=== PATIENT | female | born 1940 | race African-American/Black ===

== ENCOUNTER 2017-07-25 08:37 | Inpatient (IN) | payer MEDICARE, OTHER ==
[2017-07-25] MEDS ORDERED: GLUCAGON,HUMAN RECOMB 1 MG INJ IV ONE (08:59)
[2017-07-25] MEDS ORDERED: ONDANSETRON HCL INJ/PF 4 MG/2 ML SDV IV ONE (08:59)
[2017-07-25] MEDS ORDERED: NORMAL SALINE 500 ML IV ONE (08:59)
[2017-07-25 09:14] LABS: ABSOLUTE BASOPHILS # (AUTO) 0.1 10^3/uL (0.0-0.2); ABSOLUTE EOSINOPHILS # (AUTO) 0.3 10^3/uL (0.0-0.6); ABSOLUTE LYMPHOCYTES (AUTO) 4.4 10^3/uL (0.5-4.7); ABSOLUTE MONOCYTES (AUTO) 0.5 10^3/uL (0.1-1.4); ABSOLUTE NEUT (AUTO) 4.7 10^3/uL (1.7-8.2); BASOPHILS % (AUTO) 0.7 % (0-2); EOSINOPHILS % (AUTO) 2.9 % (0-6); HEMATOCRIT 42.9 % (36.0-47.0); HEMOGLOBIN 14.1 g/dL (12.0-15.5); HGB HCT DIFFERENCE -0.6; LYMPHOCYTES % (AUTO) 43.9 % (13-45); MEAN CORPUSCULAR HEMOGLOBIN 29.8 pg (27.0-33.4); MEAN CORPUSCULAR HGB CONC 32.9 g/dL (32.0-36.0); MEAN CORPUSCULAR VOLUME 90 fl (80-97); MONOCYTES % (AUTO) 5.5 % (3-13); RED BLOOD COUNT 4.74 10^6/uL (3.72-5.28); RED CELL DISTRIBUTION WIDTH 14.8 % (11.5-14.0); WHITE BLOOD COUNT 9.9 10^3/uL (4.0-10.5)
[2017-07-25 09:19] LABS: VENOUS BLOOD BASE EXCESS 0.9 mmol/L; VENOUS BLOOD HCO3 26.1 mmol/L (20-32); VENOUS BLOOD PCO2 43.5 mmHg (35-63); VENOUS BLOOD PH 7.4 (7.30-7.42)
[2017-07-25 09:29] LABS: APPEARANCE,URINE SLIGHTLY-CLOUDY; BILIRUBIN,URINE NEGATIVE (NEGATIVE); GLUCOSE, URINE NEGATIVE (NEGATIVE); KETONES,URINE NEGATIVE (NEGATIVE); LEUKOCYTE ESTERASE,URINE NEGATIVE (NEGATIVE); NITRITE,URINE NEGATIVE (NEGATIVE); PROTEIN,URINE 100 mg/dL (NEGATIVE); URINE SPECIFIC GRAVITY 1.014
[2017-07-25 09:40] LABS: ALANINE AMINOTRANSFERASE 66 U/L (9-52); ALBUMIN 4.4 g/dL (3.5-5.0); ALKALINE PHOSPHATASE 88 U/L (38-126); ANION GAP 12 (5-19); ASPARTATE AMINO TRANSFERASE 68 U/L (14-36); BILIRUBIN,DIRECT 0.5 mg/dL (0.0-0.4); BILIRUBIN,TOTAL 0.6 mg/dL (0.2-1.3); BLOOD UREA NITROGEN 19 mg/dL (7-20); CALCIUM 11.2 mg/dL (8.4-10.2); CARBON DIOXIDE 23 mmol/L (22-30); CHLORIDE 106 mmol/L (98-107); CREATINE KINASE 278 U/L (30-135); CREATININE RESULT 1.41 mg/dL (0.52-1.25); GLUCOSE 166 mg/dL (75-110); POTASSIUM 3.9 mmol/L (3.6-5.0); SODIUM 140.9 mmol/L (137-145); TOTAL PROTEIN 7.3 g/dL (6.3-8.2)
[2017-07-25 09:51] LABS: CREATINE KINASE MB 2.35 ng/mL (<4.55)
[2017-07-25 09:53] LABS: TROPONIN I < 0.012 ng/mL
--- NOTE | 2017-07-25 10:16 | RADIOLOGY REPORT (SQ) ---
EXAM DESCRIPTION: CHEST SINGLE VIEW COMPLETED DATE/TIME: 07/25/2017 10:01 am REASON FOR STUDY: weakness COMPARISON: 06/07/2015 EXAM PARAMETERS: NUMBER OF VIEWS: One view. TECHNIQUE: Single frontal radiographic view of the chest acquired. RADIATION DOSE: NA LIMITATIONS: None. FINDINGS: LUNGS AND PLEURA: No opacities, masses or pneumothorax. No pleural effusion. MEDIASTINUM AND HILAR STRUCTURES: No masses. Tortuous aorta. . HEART AND VASCULAR STRUCTURES: Heart is at the upper limits of normal allowing for the portable AP na ture of the film. Normal vasculature. BONES: No acute findings. HARDWARE: None in the chest. OTHER: No other significant finding. IMPRESSION: NO ACUTE RADIOGRAPHIC FINDING IN THE CHEST. TECHNICAL DOCUMENTATION: JOB ID: [id number]
--- NOTE | 2017-07-25 11:45 | ER Document Report ---
ED General - General Chief Complaint: Shortness Of Breath Stated Complaint: SHORTNESS OF BREATH Time Seen by Provider: 07/25/17 08:57 TRAVEL OUTSIDE OF THE [place] IN LAST 30 DAYS: No - HPI Patient complains to provider of: Shortness of breath generalized weakness Notes: Patient states feeling unwell for over a week recently saw her PCP at the beginning of this week and had an increase in her blood pressure medication due to hypertension. Patient otherwise states continues to feel unwell. Denies any recent antibiotics denies any fevers chills nausea vomiting she states shortness of breath however this is been ongoing for greater than a week denies any recent travel denies any cough or sputum production. Patient is resting comfortably upon my evaluation of note patient is significantly bradycardic with heart rates in the upper 30s-40s patient does seem to be symptomatic and she states when she sits up her symptoms are worsened - Related Data Allergies/Adverse Reactions: shellfish derived Allergy (Verified 07/25/17 10:10) Home Medications: Current Home Medications Difluprednate [Durezol] 5 ml OP BID 07/25/17 [History] Esomeprazole Mag Trihydrate [Nexium] 40 mg PO DAILY 07/25/17 [History] Fluticasone/Salmeterol [Advair 250-50 Diskus 28 dose] 1 inh IH Q12H 07/25/17 [ History] Ipratropium [place] [Atrovent 0.06% Nasal [place]] 2 spray NASL TID 07/25/17 [ History] Lactose-Reduced Food [Ensure Liquid] 237 ml PO BID 07/25/17 [History] Loratadine [Allergy Relief] 10 mg PO DAILY 07/25/17 [History] Rosuvastatin Calcium 20 mg PO DAILY 07/25/17 [History] Telmisartan/Hydrochlorothiazid [Micardis HCT 80-25 mg Tablet] 1 tab PO DAILY [History] Past Medical History - Social History Smoking Status: Former Smoker Chew tobacco use (# tins/day): No Frequency of alcohol use: None Drug Abuse: None Family History: Reviewed & Not Pertinent - Past Medical History Cardiac Medical History: Reports: Hx Atrial Fibrillation, Hx Coronary Artery Disease - hifh chol , Hx Hypercholesterolemia, Hx Hypertension Denies: Hx Heart Attack Pulmonary Medical History: Reports: Hx Asthma, Hx Bronchitis, Hx COPD, Hx Pneumonia Neurological Medical History: Denies: Hx Cerebrovascular Accident, Hx Seizures GI Medical History: Reports: Hx Gastroesophageal Reflux Disease, Hx Hiatal Hernia. Denies: Hx Hepatitis, Hx Ulcer Musculoskeltal Medical History: Reports Hx Arthritis Psychiatric Medical History: Reports: Hx Anxiety, Hx Depression - not needed medication Infectious Medical History: Denies: Hx Hepatitis Past Surgical History: Reports: Hx Adenoidectomy, Hx Hysterectomy, Hx Tonsillectomy. Denies: Hx Mastectomy, Hx Open Heart Surgery, Hx Pacemaker - Immunizations Hx Diphtheria, Pertussis, Tetanus Vaccination: Yes Hx Pneumococcal Vaccination: 12/02/13 Review of Systems - Review of Systems Constitutional: Weakness EENT: No symptoms reported Cardiovascular: No symptoms reported Respiratory: No symptoms reported Gastrointestinal: No symptoms reported Genitourinary: No symptoms reported Female Genitourinary: No symptoms reported Musculoskeletal: No symptoms reported Skin: No symptoms reported Hematologic/Lymphatic: No symptoms reported Neurological/Psychological: No symptoms reported -: Yes All other systems reviewed and negative Physical Exam - Vital signs Vitals: Pulse Ox 81 L 07/25/17 08:41 Interpretation: Normal - General General appearance: Appears well, Alert - HEENT Head: Normocephalic, Atraumatic Eyes: Normal Pupils: PERRL - Respiratory Respiratory status: No respiratory distress Chest status: Nontender Breath sounds: Normal Chest palpation: Normal - Cardiovascular Rhythm: Bradycardia Heart sounds: Normal auscultation Murmur: No - Abdominal Inspection: Normal Distension: No distension Bowel sounds: Normal Tenderness: Nontender Organomegaly: No organomegaly - Back Back: Normal, Nontender - Extremities General upper extremity: Normal inspection, Nontender, Normal color, Normal ROM , Normal temperature General lower extremity: Normal inspection, Nontender, Normal color, Normal ROM , Normal temperature, Normal weight bearing. No: She's sign - Neurological Neuro grossly intact: Yes Cognition: Normal Orientation: AAOx4 [place] Coma Scale Eye Opening: Spontaneous Ger Coma Scale Verbal: Oriented Ger Coma Scale Motor: Obeys Commands [place] Coma Scale Total: 15 Speech: Normal Motor strength normal: LUE, RUE, LLE, RLE Sensory: Normal - Psychological Associated symptoms: Normal affect, Normal mood - Skin Skin Temperature: Warm Skin Moisture: Dry Skin Color: Normal Course - Re-evaluation Re-evalutation: 07/25/17 14:30 Laboratory findings shows slight elevation in renal function slight lactic acid this is more likely related to the patient's bradycardia. Patient was given IV fluids IV Zofran and IV glucagon which did improve her heart rate. Review of the patient's medication shows slight increase in her Cardizem from 240-360 recently. More likely this is the reason for the patient's bradycardia as this has resolved patient's symptoms have improved. Feel there is any need at this time to give the patient any calcium is that the patient seems to be otherwise be stable. Discussed with PCP agrees with plan to observe patient and reevaluate patient's blood pressure medications in the morning. - Vital Signs Vital signs: Temp Pulse Resp BP Pulse Ox 18 149/76 H 95 07/25/17 13:21 07/25/17 13:21 07/25/17 13:21 - Laboratory Result Diagrams: 07/25/17 08:51 07/25/17 08:51 Laboratory results interpreted by me: 07/25/17 07/25/17 07/25/17 08:51 08:51 08:51 RDW 14.8 H Creatinine 1.41 H Est GFR ( Amer) 44 L Est GFR (Non-Af Amer) 36 L Glucose 166 H POC Glucose Lactic Acid 2.2 H Calcium 11.2 H Direct Bilirubin 0.5 H AST 68 H ALT 66 H Creatine Kinase 278 H Urine Protein Urine Urobilinogen 07/25/17 07/25/17 08:51 09:49 RDW Creatinine Est GFR ( Amer) Est GFR (Non-Af Amer) Glucose POC Glucose 166 H Lactic Acid Calcium Direct Bilirubin AST ALT Creatine Kinase Urine Protein 100 H Urine Urobilinogen 2.0 H Critical Care Note - Critical Care Note Total time excluding time spent on procedures (mins): 35 Comments: Patient with multiple evaluations for symptomatically bradycardia Discharge - Discharge Clinical Impression: Symptomatic bradycardia, Weakness Condition: Good Disposition: ADMITTED OBSERVATION Admitting Provider: [facility] Admitted: Telemetry
[2017-07-25] MEDS ORDERED: ACETAMINOPHEN 500 MG PO PRN (15:59)
[2017-07-25] MEDS ORDERED: (PENDING PHARMACY ID) (Guaifenesin [Mucinex] 600 MG) PO PRN (15:59)
[2017-07-25] MEDS ORDERED: ALBUTEROL SULFATE HFA (90 MCG/PUFF) 200 PUFF/8.5 GM MDI IH PRN (15:59)
[2017-07-25] MEDS ORDERED: GUAIFENESIN 600 MG TABLET.SA PO PRN (16:20)
[2017-07-25] MEDS ORDERED: (PENDING PHARMACY ID) (Difluprednate [Durezol] 5 ML) OP SCH (18:00)
[2017-07-25] MEDS ORDERED: LACTOSE REDUCED FOOD PO SCH (18:00)
[2017-07-25] MEDS: IPRATROPIUM BROMIDE 0.06% NASAL SPRAY 15 ML NASL SCH (18:03)
--- NOTE | 2017-07-25 19:23 | PDOC H&P ---
History of Present Illness Admission Date/PCP: 07/25/17 12:08 LANDON RADHA Patient complains of: Shortness of breath, Generalized weakness History of Present Illness: HEMANT ANDERSON is a 76 year old female known to my practice presented to the ED with complain of worsening generalized weakness and difficulty with breathing. She denied any associated chest pain, palpitation, nausea, vomiting, or diarrhea. She was recently evaluated in the office as work-in for congestion and treated with nasal steroid but found to have significantly elevated blood pressure necessitating adjustment i her Cardizem XT to 360 mg from 240 mg daily. She reported worsening weakness thereafter. Patient denied taking her old and new prescribed medication together. Her initial evaluation in the ED revealed significant bradycardia and patient reported worsening of her symptoms with change in her position. 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 She was treated with IV fluid, Zofran and Glucagon. She did respond to this therapy but due to persistent bradycardia and weakness she was advised hospitalization for further evaluation and management. Past Medical History Cardiac Medical History: Reports: Atrial Fibrillation, Coronary Artery Disease - hifh chol , Hyperlipidema, Hypertension Denies: Myocardial Infarction Pulmonary Medical History: Reports: Asthma, Bronchitis, Chronic Obstructive Pulmonary Disease (COPD), Pneumonia Neurological Medical History: Denies: Seizures GI Medical History: Reports: Gastroesophageal Reflux Disease, Hiatal Hernia Denies: Hepatitis Musculoskeltal Medical History: Reports: Arthritis Psychiatric Medical History: Reports: Depression - not needed medication Hematology: Denies: Anemia, Sickle Cell Disease Past Surgical History Past Surgical History: Reports: Adenoidectomy, Hysterectomy, Tonsillectomy Denies: Amputation, Mastectomy, Pacemaker Social History Smoking Status: Former Smoker Frequency of Alcohol Use: None Hx Recreational Drug Use: No Drugs: None Hx Prescription Drug Abuse: No - Advance Directive Resuscitation Status: Full Code Family History Family History: Reviewed & Not Pertinent Parental Family History Reviewed: Yes Children Family History Reviewed: Yes Sibling(s) Family History Reviewed.: Yes Medication/Allergy Home Medications: Acetaminophen [Pain Relief] 500 mg PO Q6HP PRN 06/08/15 Albuterol Sulfate [Proair HFA Inhalation Aerosol 8.5 gm MDI] 2 puff IH Q4HP PRN 06/08/15 Aspirin [Aspirin EC] 81 mg PO QHS 06/08/15 Diltiazem HCl [Cartia Xt] 240 mg PO DAILY 06/08/15 Donepezil HCl 10 mg PO DAILY 06/08/15 Fluticasone Propionate 1 spray NS BID 06/08/15 Guaifenesin [Mucinex] 600 mg PO BIDP PRN 06/08/15 Montelukast Sodium 10 mg PO DAILY 06/08/15 Sertraline HCl [Zoloft 50 mg Tablet] 25 mg PO DAILY #30 tablet 06/10/15 Difluprednate [Durezol] 5 ml OP BID 07/25/17 Esomeprazole Mag Trihydrate [Nexium] 40 mg PO DAILY 07/25/17 Fluticasone/Salmeterol [Advair 250-50 Diskus 28 dose] 1 inh IH Q12H 07/25/17 Ipratropium [place] [Atrovent 0.06% Nasal [place]] 2 spray NASL TID 07/25/17 Lactose-Reduced Food [Ensure Liquid] 237 ml PO BID 07/25/17 Loratadine [Allergy Relief] 10 mg PO DAILY 07/25/17 Rosuvastatin Calcium 20 mg PO DAILY 07/25/17 Telmisartan/Hydrochlorothiazid [Micardis HCT 80-25 mg Tablet] 1 tab PO DAILY Allergies/Adverse Reactions: shellfish derived Allergy (Verified 07/25/17 10:10) Review of Systems Constitutional: PRESENT: fatigue, weakness. ABSENT: as per HPI, anorexia, chills, fever(s), headache(s), night sweats, weight gain, weight loss, other Eyes: ABSENT: visual disturbances Ears: ABSENT: hearing changes Nose, Mouth, and Throat: ABSENT: as per HPI, headache(s), mouth pain, sore throat, vertigo, other Cardiovascular: ABSENT: chest pain, dyspnea on exertion, edema, orthropnea, palpitations Respiratory: ABSENT: cough, hemoptysis Gastrointestinal: ABSENT: abdominal pain, constipation, diarrhea, hematemesis, hematochezia, nausea, vomiting Genitourinary: ABSENT: dysuria, hematuria Musculoskeletal: PRESENT: muscle weakness - generalized weakness Integumentary: ABSENT: rash, wounds Neurological: ABSENT: abnormal gait, abnormal speech, confusion, dizziness, focal weakness, syncope Psychiatric: ABSENT: anxiety, depression, homidical ideation, suicidal ideation Endocrine: ABSENT: cold intolerance, heat intolerance, polydipsia, polyuria Hematologic/Lymphatic: ABSENT: easy bleeding, easy bruising, lymphadenopathy Allergic/Immunologic: PRESENT: seasonal rhinorrhea - recent nasal and sinus congestion Physical Exam Vital Signs: Temp Pulse Resp BP Pulse Ox 97.3 F 60 16 149/70 H 100 07/25/17 14:10 07/25/17 14:30 07/25/17 14:10 07/25/17 14:10 07/25/17 14:10 Intake & Output 07/24/17 07/25/17 07/26/17 06:59 06:59 06:59 Weight 76 kg General appearance: PRESENT: no acute distress, cooperative, well-developed, well-nourished Head exam: PRESENT: atraumatic, normocephalic Eye exam: PRESENT: conjunctiva pink, EOMI, PERRLA. ABSENT: scleral icterus Ear exam: PRESENT: normal external ear exam Mouth exam: PRESENT: moist, tongue midline Teeth exam: ABSENT: dental caries, dental tenderness, edentulous, poor dentation , other Throat exam: ABSENT: post pharyngeal erythema, tonsillar erythema, tonsillar exudate, tonsillogmegaly, other Neck exam: PRESENT: full ROM. ABSENT: carotid bruit, JVD, lymphadenopathy, thyromegaly Respiratory exam: PRESENT: clear to auscultation eliezer Cardiovascular exam: PRESENT: bradycardia, RRR, +S1, +S2, systolic murmur Murmur grade: 3 Pulses: PRESENT: normal dorsalis pedis pul, +2 pedal pulses bilateral Vascular exam: PRESENT: normal capillary refill. ABSENT: pallor GI/Abdominal exam: PRESENT: normal bowel sounds, soft. ABSENT: distended, guarding, mass, organolmegaly, rebound, tenderness Rectal exam: PRESENT: deferred Extremities exam: ABSENT: pedal edema Musculoskeletal exam: PRESENT: deformity - related to multiple joints involvement with arthritis, normal inspection Neurological exam: PRESENT: alert, awake, oriented to person, oriented to place , oriented to time, oriented to situation, CN II-XII grossly intact. ABSENT: motor sensory deficit Psychiatric exam: PRESENT: appropriate affect, normal mood. ABSENT: homicidal ideation, suicidal ideation Skin exam: PRESENT: dry, intact, warm. ABSENT: cyanosis, rash Results Laboratory Results: 07/25/17 14:53 Lactic Acid 1.6 Impressions: Chest X-Ray 07/25/17 08:58 IMPRESSION: NO ACUTE RADIOGRAPHIC FINDING IN THE CHEST. Assessment & Plan - Diagnosis (1) Symptomatic bradycardia Is this a current diagnosis for this admission?: Yes Plan: See admitting physician orders. (2) Essential hypertension Is this a current diagnosis for this admission?: Yes Plan: See admitting physician orders. (3) GERD (gastroesophageal reflux disease) Qualifiers: Esophagitis presence: without esophagitis Qualified Code(s): K21.9 - Gastro -esophageal reflux disease without esophagitis Is this a current diagnosis for this admission?: Yes Plan: See admitting physician orders. (4) Aortic stenosis Qualifiers: Cardiac valve disease etiology: etiology unspecified Qualified Code(s): I35.0 - Nonrheumatic aortic (valve) stenosis Is this a current diagnosis for this admission?: Yes Plan: See admitting physician orders. (5) Chronic obstructive lung disease Qualifiers: COPD type: unspecified COPD Qualified Code(s): J44.9 - Chronic obstructive pulmonary disease, unspecified Is this a current diagnosis for this admission?: Yes Plan: See admitting physician orders. (6) Pure hypercholesterolemia Is this a current diagnosis for this admission?: Yes Plan: See admitting physician orders. - Time Time Spent: 50 to 70 Minutes Medications reviewed and adjusted accordingly: Yes Anticipated discharge: Home - Inpatient Certification Based on my medical assessment, after consideration of the patient's comorbidities, presenting symptoms, or acuity I expect that the services needed warrant INPATIENT care.: Yes I certify that my determination is in accordance with my understanding of Medicare's requirements for reasonable and necessary INPATIENT services [42 CFR 412.3e].: Yes Medical Necessity: Need Close Monitoring Due to Risk of Patient Decompensation, Need For IV Fluids, Need For Continuous Telemetry Monitoring, Risk of Complication if Not Cared For in Hospital Post 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
[2017-07-25 21:20] LABS: CREATINE KINASE MB 1.67 ng/mL (<4.55); TROPONIN I 0.014 ng/mL
--- NOTE | 2017-07-25 21:25 | EKG REPORT ---
SEVERITY:- ABNORMAL ECG - A. FIB LEFT AXIS DEVIATION LVH WITH SECONDARY REPOLARIZATION ABNORMALITY : Confirmed by: Johny Tsang 25-Jul-2017 21:23:44
[2017-07-25] MEDS: ASPIRIN 81 MG TABLET, ENT COATED PO SCH (21:42)
[2017-07-25] MEDS: FLUTICASONE/SALMETEROL DISKUS 250-50 MCG/DOSE IH SCH (21:42)
[2017-07-25] MEDS: FLUTICASONE NASAL SPRAY 50 MCG/SPRY 120 SPRAY/16 GM NASL SCH (21:43)
[2017-07-25] MEDS: ATORVASTATIN CALCIUM 40 MG TABLET PO SCH (21:44)
[2017-07-25] MEDS: CEFTRIAXONE 1 GM/D5W RTU 1 GM/50 ML RTUPB IV SCH (22:02)
[2017-07-26 02:33] LABS: ABSOLUTE EOSINOPHILS # (AUTO) 0.2 10^3/uL (0.0-0.6); ABSOLUTE MONOCYTES (AUTO) 0.7 10^3/uL (0.1-1.4); ABSOLUTE NEUT (AUTO) 3.2 10^3/uL (1.7-8.2); BASOPHILS % (AUTO) 0.6 % (0-2); EOSINOPHILS % (AUTO) 2.3 % (0-6); HEMOGLOBIN 12.4 g/dL (12.0-15.5); HGB HCT DIFFERENCE 0.2; LYMPHOCYTES % (AUTO) 49.1 % (13-45); MEAN CORPUSCULAR HGB CONC 33.5 g/dL (32.0-36.0); MEAN CORPUSCULAR VOLUME 90 fl (80-97); MONOCYTES % (AUTO) 8.4 % (3-13); RED BLOOD COUNT 4.13 10^6/uL (3.72-5.28); RED CELL DISTRIBUTION WIDTH 14.3 % (11.5-14.0); SEGMENTED NEUTROPHILS % (AUTO) 39.6 % (42-78); WHITE BLOOD COUNT 8.1 10^3/uL (4.0-10.5)
[2017-07-26 03:03] LABS: CREATINE KINASE MB 1.22 ng/mL (<4.55); TROPONIN I < 0.012 ng/mL
[2017-07-26 03:04] LABS: ALANINE AMINOTRANSFERASE 43 U/L (9-52); ALBUMIN 3.5 g/dL (3.5-5.0); ALKALINE PHOSPHATASE 68 U/L (38-126); ANION GAP 9 (5-19); ASPARTATE AMINO TRANSFERASE 29 U/L (14-36); BILIRUBIN,DIRECT 0.3 mg/dL (0.0-0.4); BILIRUBIN,TOTAL 0.4 mg/dL (0.2-1.3); BLOOD UREA NITROGEN 21 mg/dL (7-20); CALCIUM 10.7 mg/dL (8.4-10.2); CARBON DIOXIDE 24 mmol/L (22-30); CHLORIDE 111 mmol/L (98-107); CREATINE KINASE 171 U/L (30-135); CREATININE RESULT 1.44 mg/dL (0.52-1.25); GLUCOSE 118 mg/dL (75-110); POTASSIUM 3.9 mmol/L (3.6-5.0); SODIUM 143.8 mmol/L (137-145); TOTAL PROTEIN 6.1 g/dL (6.3-8.2)
[2017-07-26 08:51] LABS: CREATINE KINASE MB 1.28 ng/mL (<4.55)
[2017-07-26 08:53] LABS: TROPONIN I < 0.012 ng/mL
[2017-07-26] MEDS ORDERED: MONTELUKAST SODIUM 10 MG TABLET PO SCH ×2 (10:00→22:00)
[2017-07-26] MEDS ORDERED: LORATADINE 10 MG TABLET PO SCH ×2 (10:00→22:00)
[2017-07-26] MEDS ORDERED: (PENDING PHARMACY ID) (Rosuvastatin Calcium [Rosuvastatin Calcium] 20 MG) PO SCH (10:00)
[2017-07-26] MEDS ORDERED: (PENDING PHARMACY ID) (Esomeprazole Mag Trihydrate [Nexium] 40 MG) PO SCH (10:00)
[2017-07-26] MEDS ORDERED: (PENDING PHARMACY ID) (Telmisartan/Hydrochlorothiazid [Micardis Hct 80-25 Mg Tablet] 1 TAB PO SCH (10:00)
[2017-07-26] MEDS ORDERED: [UNRECOGNIZED DRUG - REMARK] PO SCH (10:00)
[2017-07-26] MEDS: FLUTICASONE NASAL SPRAY 50 MCG/SPRY 120 SPRAY/16 GM NASL SCH ×2 (10:23→23:49)
[2017-07-26] MEDS: DONEPEZIL HCL 5 MG TABLET PO SCH (10:23)
[2017-07-26] MEDS: HYDROCHLOROTHIAZIDE 25 MG TABLET PO SCH (10:24)
[2017-07-26] MEDS: FLUTICASONE/SALMETEROL DISKUS 250-50 MCG/DOSE IH SCH ×2 (10:24→23:49)
[2017-07-26] MEDS: LANSOPRAZOLE 30 MG TAB.RAP.DR PO SCH (10:31)
[2017-07-26] MEDS: SERTRALINE HCL 50 MG TABLET PO SCH (10:32)
[2017-07-26] MEDS: LOSARTAN POTASSIUM 50 MG TABLET PO SCH (10:38)
[2017-07-26] MEDS: IPRATROPIUM BROMIDE 0.06% NASAL SPRAY 15 ML NASL SCH ×3 (10:41→18:57)
[2017-07-26] MEDS: ACETAMINOPHEN 325 MG TABLET PO PRN (13:18)
[2017-07-26] MEDS ORDERED: VANCOMYCIN HCL 0 MG in DEXTROSE 5%-WATER 250 ML IV NR (15:00)
[2017-07-26] MEDS ORDERED: NIFEDIPINE 30 MG TAB.ER.24 PO ONE (15:10)
--- NOTE | 2017-07-26 16:02 | PDOC PROGRESS REPORT ---
Subjective Progress Note for:: 07/26/17 Subjective:: Patient reported slight headache. No nausea, vomiting or dizziness. She claimed improvement with administration of Tylenol. No chest pain or difficulty with breathing. No reported fever or chills. Bradycardia is improving but with associated demonstrable elevated blood pressure. Physical Exam Vital Signs: Temp Pulse Resp BP Pulse Ox 97.6 F 92 16 189/97 H 95 07/26/17 15:48 07/26/17 15:48 07/26/17 15:48 07/26/17 15:48 07/26/17 15:48 Intake & Output 07/25/17 07/26/17 07/27/17 06:59 06:59 06:59 Intake Total 500 355 Balance 500 355 Weight 75.8 kg General appearance: PRESENT: no acute distress, cooperative, well-developed, well-nourished Head exam: PRESENT: atraumatic, normocephalic Eye exam: PRESENT: conjunctiva pink, EOMI, PERRLA. ABSENT: scleral icterus Neck exam: PRESENT: full ROM. ABSENT: carotid bruit, JVD, lymphadenopathy, thyromegaly Respiratory exam: PRESENT: clear to auscultation eliezer Cardiovascular exam: PRESENT: RRR, +S1, +S2, systolic murmur. ABSENT: diastolic murmur, rubs Murmur grade: 3 Vascular exam: PRESENT: normal capillary refill. ABSENT: pallor GI/Abdominal exam: PRESENT: normal bowel sounds, soft. ABSENT: distended, guarding, mass, organolmegaly, rebound, tenderness Extremities exam: ABSENT: pedal edema Musculoskeletal exam: PRESENT: normal inspection Neurological exam: PRESENT: alert, awake, oriented to person, oriented to place , oriented to time, oriented to situation, CN II-XII grossly intact. ABSENT: motor sensory deficit Psychiatric exam: PRESENT: appropriate affect, normal mood. ABSENT: homicidal ideation, suicidal ideation Skin exam: PRESENT: dry, intact, warm. ABSENT: cyanosis, rash Results Laboratory Results: 07/26/17 02:23 07/26/17 02:23 07/26/17 07/26/17 02:23 02:23 WBC 8.1 RBC 4.13 Hgb 12.4 Hct 37.0 MCV 90 MCH 30.0 MCHC 33.5 RDW 14.3 H Plt Count 201 Seg Neutrophils % 39.6 L Lymphocytes % 49.1 H Monocytes % 8.4 Eosinophils % 2.3 Basophils % 0.6 Absolute Neutrophils 3.2 Absolute Lymphocytes 4.0 Absolute Monocytes 0.7 Absolute Eosinophils 0.2 Absolute Basophils 0.0 Sodium 143.8 Potassium 3.9 Chloride 111 H Carbon Dioxide 24 Anion Gap 9 BUN 21 H Creatinine 1.44 H Est GFR ( Amer) 43 L Est GFR (Non-Af Amer) 35 L Glucose 118 H Calcium 10.7 H Total Bilirubin 0.4 AST 29 ALT 43 Alkaline Phosphatase 68 Total Protein 6.1 L Albumin 3.5 07/25/17 07/25/17 07/26/17 20:00 20:00 02:23 Creatine Kinase 216 H CK-MB (CK-2) 1.67 1.22 Troponin I 0.014 < 0.012 07/26/17 07/26/17 07/26/17 02:23 08:16 08:16 Creatine Kinase 171 H 142 H CK-MB (CK-2) 1.28 Troponin I < 0.012 Impressions: Chest X-Ray 07/25/17 08:58 IMPRESSION: NO ACUTE RADIOGRAPHIC FINDING IN THE CHEST. Assessment & Plan - Diagnosis (1) Symptomatic bradycardia Is this a current diagnosis for this admission?: Yes (2) Essential hypertension Is this a current diagnosis for this admission?: Yes (3) GERD (gastroesophageal reflux disease) Qualifiers: Esophagitis presence: without esophagitis Qualified Code(s): K21.9 - Gastro -esophageal reflux disease without esophagitis Is this a current diagnosis for this admission?: Yes (4) Aortic stenosis Qualifiers: Cardiac valve disease etiology: etiology unspecified Qualified Code(s): I35.0 - Nonrheumatic aortic (valve) stenosis Is this a current diagnosis for this admission?: Yes (5) Chronic obstructive lung disease Qualifiers: COPD type: unspecified COPD Qualified Code(s): J44.9 - Chronic obstructive pulmonary disease, unspecified Is this a current diagnosis for this admission?: Yes (6) Pure hypercholesterolemia Is this a current diagnosis for this admission?: Yes - Time Time Spent with patient: 25-34 minutes Medications reviewed and adjusted accordingly: Yes Anticipated discharge: Home with Homehealth Within: Other - Inpatient Certification Medical Necessity: Need Close Monitoring Due to Risk of Patient Decompensation, Need For Continuous Telemetry Monitoring, Risk of Complication if Not Cared For in Hospital Post Hospital Care: D/C Visor Installer Documentation - Plan Summary Plan Summary: Start on IV Vancomycin for blood culture growth of gram positive cocci in cluster, probably contamination but in view of her presentation we will choice this path. Repeat blood culture x 2 sets. Continue IV Rocephin coverage with consideration of probable UTI. Start on Procardia XL 60 mg p.o x 1 dose. Continue on all other current medication management. Repeat CBC with Diff and BMP in AM.
[2017-07-26] MEDS ORDERED: CLONIDINE HCL 0.2 MG TABLET PO ONE (17:00)
[2017-07-26] MEDS ORDERED: TEMAZEPAM 7.5 MG CAPSULE PO SCH ×2 (17:30→22:00)
[2017-07-26] MEDS: VANCOMYCIN HCL 750 MG in DEXTROSE 5%-WATER 250 ML IV SCH (18:54)
--- NOTE | 2017-07-26 18:56 | XCELERA REPORT ---
[address] [address] Transthoracic Echocardiogram Report Name: HEMANT ANDERSON Age: 76 yrs Gender: Female : 1940 Patient Status: Inpatient Patient Location: [address] [place] [address] Study Date: 07/26/2017 09:44 AM Height: 65 in Weight: 167 lb BSA: 1.8 m2 Procedure: A complete two-dimensional transthoracic echocardiogram was performed (2D, M-mode, spectral and color flow Doppler). The study was technically difficult with many images being suboptimal in quality. Reason For Study: Bradycardia h/o Cardiac Murmur, Aortic stenosis Ordering Physician: LANDON GARCIA Performed By: Claudia Cardoso Interpretation Summary The study was technically difficult with many images being suboptimal in quality. The left ventricular ejection fraction is normal. There is moderate concentric left ventricular hypertrophy. Doppler measurements suggest pseudonormalized left ventricular relaxation, which is associated with grade II/IV or mild to moderate diastolic dysfunction The left ventricle is grossly normal size. Wall motion cannot be accurately commented on, but no definite regional wall motion abnormalities noted. There is moderate aortic stenosis There is a peak gradient of 40-45, mean 20-25 mm of Hg. There is a trace amount of aortic regurgitation There is no mitral valve stenosis. There is a trace amount of mitral regurgitation There is no pericardial effusion. MMode/2D Measurements & Calculations RVDd: 2.5 cm LVIDd: 3.0 cm FS: 30.1 % Ao root diam: 3.1 cm IVSd: 1.6 cm LVIDs: 2.1 cm EDV(Teich): 35.8 ml LVPWd: 1.6 cm ESV(Teich): 14.7 ml Ao root area: 7.3 cm2 EF(Teich): 59.0 % LA dimension: 2.8 cm LVOT diam: 2.2 cm LVOT area: 4.0 cm2 Doppler Measurements & Calculations MV E max isabell: MV P1/2t max isabell: Ao V2 max: LV V1 max P.6 cm/sec 71.3 cm/sec 328.1 cm/sec 12.4 mmHg MV A max isabell: MV P1/2t: 57.5 msec Ao max PG: LV V1 mean P.0 cm/sec MVA(P1/2t): 3.8 cm2 43.1 mmHg 8.5 mmHg MV E/A: 0.73 MV dec slope: Ao V2 mean: LV V1 max: 363.3 cm/sec2 221.9 cm/sec 175.8 cm/sec Ao mean PG: LV V1 mean: 23.3 mmHg 139.9 cm/sec Ao V2 VTI: 63.3 cmLV V1 VTI: 36.9 cm SANJANA(I,D): 2.3 cm2 SANJANA(V,D): 2.1 cm2 SV(LVOT): 146.2 mlPA V2 max: TR max isabell: 71.9 cm/sec 160.6 cm/sec PA max P.1 mmHg TR max P.3 mmHg Left Ventricle The left ventricle is grossly normal size. There is moderate concentric left ventricular hypertrophy. The left ventricular ejection fraction is normal. Doppler measurements suggest pseudonormalized left ventricular relaxation, which is associated with grade II/IV or mild to moderate diastolic dysfunction. Wall motion cannot be accurately commented on, but no definite regional wall motion abnormalities noted. Right Ventricle The right ventricle is grossly normal size. There is normal right ventricular wall thickness. The right ventricular systolic function is normal. Atria The right atrium is normal. The left atrial size is normal. Interarterial septum not well visualized and not well dopplered. Cannot comment on ASD/PFO presence. Mitral Valve There is mild mitral annular calcification. There is no mitral valve stenosis. There is a trace amount of mitral regurgitation. Aortic Valve The aortic valve is moderately calcified. There is moderate aortic stenosis. There is a peak gradient of 40-45, mean 20-25 mm of Hg. There is a trace amount of aortic regurgitation. Tricuspid Valve The tricuspid valve is not well visualized secondary to technical limitations. There is no tricuspid stenosis. There is a trace or physiologic amount of tricuspid regurgitation. Tricuspid regurgitation jet envelope not well defined to measure RV systolic pressure accurately. Pulmonic Valve The pulmonic valve is not well visualized. Great Vessels The aortic root is not well visualized but is probably normal size. The inferior vena cava was not well visualized. Effusions There is no pericardial effusion. : LANDON GARCIA > Johny Tsang
[2017-07-26] MEDS ORDERED: MELATONIN 5 MG PO SCH (22:00)
[2017-07-26] MEDS: ASPIRIN 81 MG TABLET, ENT COATED PO SCH (22:34)
[2017-07-26] MEDS: CEFTRIAXONE 1 GM/D5W RTU 1 GM/50 ML RTUPB IV SCH (22:37)
[2017-07-26] MEDS: ATORVASTATIN CALCIUM 40 MG TABLET PO SCH (23:49)
[2017-07-27 06:04] LABS: HEMATOCRIT 39.8 % (36.0-47.0); HEMOGLOBIN 13.3 g/dL (12.0-15.5); HGB HCT DIFFERENCE 0.1; MEAN CORPUSCULAR HEMOGLOBIN 29.9 pg (27.0-33.4); MEAN CORPUSCULAR HGB CONC 33.4 g/dL (32.0-36.0); MEAN CORPUSCULAR VOLUME 89 fl (80-97); RED BLOOD COUNT 4.46 10^6/uL (3.72-5.28); RED CELL DISTRIBUTION WIDTH 14.5 % (11.5-14.0); WHITE BLOOD COUNT 11.1 10^3/uL (4.0-10.5)
[2017-07-27 06:08] LABS: ANION GAP 12 (5-19); BLOOD UREA NITROGEN 21 mg/dL (7-20); CALCIUM 10.8 mg/dL (8.4-10.2); CARBON DIOXIDE 23 mmol/L (22-30); CHLORIDE 103 mmol/L (98-107); CREATININE RESULT 1.33 mg/dL (0.52-1.25); GLUCOSE 148 mg/dL (75-110); POTASSIUM 3.7 mmol/L (3.6-5.0); SODIUM 137.9 mmol/L (137-145)
[2017-07-27 06:23] LABS: BAND NEUTROPHILS % (MANUAL) 1 % (3-5); BASOPHILS % (MANUAL) 0 % (0-2); EOSINOPHILS % (MANUAL) 1 % (0-6); LYMPHOCYTES % (MANUAL) 4 % (13-45); TOTAL CELLS COUNTED 100
[2017-07-27 06:24] LABS: ANISOCYTOSIS SLIGHT; TOXIC GRANULATION SLIGHT; TOXIC VACUOLATION PRESENT
[2017-07-27] MEDS: LANSOPRAZOLE 30 MG TAB.RAP.DR PO SCH (09:51)
[2017-07-27] MEDS: SERTRALINE HCL 50 MG TABLET PO SCH (09:51)
[2017-07-27] MEDS: DONEPEZIL HCL 5 MG TABLET PO SCH (09:51)
[2017-07-27] MEDS: FLUTICASONE/SALMETEROL DISKUS 250-50 MCG/DOSE IH SCH (09:52)
[2017-07-27] MEDS: FLUTICASONE NASAL SPRAY 50 MCG/SPRY 120 SPRAY/16 GM NASL SCH (09:52)
[2017-07-27] MEDS: ACETAMINOPHEN 325 MG TABLET PO PRN (09:54)
[2017-07-27] MEDS ORDERED: NIFEDIPINE 30 MG TAB.ER.24 PO SCH (10:00)
[2017-07-27] MEDS: IPRATROPIUM BROMIDE 0.06% NASAL SPRAY 15 ML NASL SCH ×3 (10:00→17:57)
[2017-07-27] MEDS ORDERED: NORMAL SALINE 1000 ML 1,000 ML IV ONE (11:32)
[2017-07-27] MEDS: LOSARTAN POTASSIUM 50 MG TABLET PO SCH (11:54)
[2017-07-27] MEDS: HYDROCHLOROTHIAZIDE 25 MG TABLET PO SCH (11:54)
--- NOTE | 2017-07-27 12:37 | PDOC PROGRESS REPORT ---
Subjective Progress Note for:: 07/27/17 Subjective:: Patient had episode of lower extremities muscle spasm last night that has improved. Her blood pressure was low this morning necessitating, blood pressure medication hold. She denied any chest pain, palpitation, difficulty with breathing, headache, dizziness, nausea, or vomiting. No reported fever or chills. Physical Exam Vital Signs: Temp Pulse Resp BP Pulse Ox 98.5 F 106 H 18 89/41 L 97 07/27/17 07:54 07/27/17 07:54 07/27/17 07:54 07/27/17 07:54 07/27/17 07:54 Intake & Output 07/26/17 07/27/17 07/28/17 06:59 06:59 06:59 Intake Total 480 Balance 480 Physical Exam: General appearance: PRESENT: no acute distress, cooperative, well-developed, well-nourished Head exam: PRESENT: atraumatic, normocephalic Eye exam: PRESENT: conjunctiva pink, EOMI, PERRLA. ABSENT: scleral icterus Neck exam: PRESENT: full ROM. ABSENT: carotid bruit, JVD, lymphadenopathy, thyromegaly Respiratory exam: PRESENT: clear to auscultation eliezer Cardiovascular exam: PRESENT: RRR, +S1, +S2, systolic murmur. ABSENT: diastolic murmur, rubs Murmur grade: 3 Vascular exam: PRESENT: normal capillary refill. ABSENT: pallor GI/Abdominal exam: PRESENT: normal bowel sounds, soft. ABSENT: distended, guarding, mass, organomegaly, rebound, tenderness Extremities exam: ABSENT: pedal edema Musculoskeletal exam: PRESENT: normal inspection Neurological exam: PRESENT: alert, awake, oriented to person, oriented to place , oriented to time, oriented to situation, CN II-XII grossly intact. ABSENT: motor sensory deficit Psychiatric exam: PRESENT: appropriate affect, normal mood. ABSENT: homicidal ideation, suicidal ideation Skin exam: PRESENT: dry, intact, warm. ABSENT: cyanosis, rash Murmur grade: 3 Results Laboratory Results: 07/27/17 05:22 07/27/17 05:22 07/27/17 07/27/17 05:22 05:22 WBC 11.1 H RBC 4.46 Hgb 13.3 Hct 39.8 MCV 89 MCH 29.9 MCHC 33.4 RDW 14.5 H Plt Count 183 Seg Neutrophils % Not Reportable Lymphocytes % Not Reportable Monocytes % Not Reportable Eosinophils % Not Reportable Basophils % Not Reportable Absolute Neutrophils Not Reportable Absolute Lymphocytes Not Reportable Absolute Monocytes Not Reportable Absolute Eosinophils Not Reportable Absolute Basophils Not Reportable Sodium 137.9 Potassium 3.7 Chloride 103 Carbon Dioxide 23 Anion Gap 12 BUN 21 H Creatinine 1.33 H Est GFR ( Amer) 47 L Est GFR (Non-Af Amer) 39 L Glucose 148 H Calcium 10.8 H Impressions: Chest X-Ray 07/25/17 08:58 IMPRESSION: NO ACUTE RADIOGRAPHIC FINDING IN THE CHEST. Assessment & Plan - Diagnosis (1) Symptomatic bradycardia Is this a current diagnosis for this admission?: Yes Plan: Resolved. She has been off Diltiazem usage. See admitting physician orders. (2) Essential hypertension Is this a current diagnosis for this admission?: Yes Plan: She had Procardia XL and Clonidine administered last night for severely elevated blood pressure which might have reflected on her blood pressure this morning. Hold ARB. Consider beta vasu for rate management if necessary. See admitting physician orders. (3) Bacteremia due to Gram-positive bacteria Is this a current diagnosis for this admission?: Yes Plan: Continue IV Rocephin and Vancomycin coverage in view of reported gram positive cocci in cluster pending organism identification and sensitivity. Urine culture is no growth x 2 days. (4) GERD (gastroesophageal reflux disease) Qualifiers: Esophagitis presence: without esophagitis Qualified Code(s): K21.9 - Gastro -esophageal reflux disease without esophagitis Is this a current diagnosis for this admission?: Yes Plan: See admitting physician orders. (5) Aortic stenosis Qualifiers: Cardiac valve disease etiology: etiology unspecified Qualified Code(s): I35.0 - Nonrheumatic aortic (valve) stenosis Is this a current diagnosis for this admission?: Yes Plan: See admitting physician orders. (6) Chronic obstructive lung disease Qualifiers: COPD type: unspecified COPD Qualified Code(s): J44.9 - Chronic obstructive pulmonary disease, unspecified Is this a current diagnosis for this admission?: Yes Plan: See admitting physician orders. (7) Pure hypercholesterolemia Is this a current diagnosis for this admission?: Yes Plan: See admitting physician orders. - Time Time Spent with patient: 25-34 minutes Medications reviewed and adjusted accordingly: Yes Anticipated discharge: Home with Homehealth Within: Other - Inpatient Certification Based on my medical assessment, after consideration of the patient's comorbidities, presenting symptoms, or acuity I expect that the services needed warrant INPATIENT care.: Yes I certify that my determination is in accordance with my understanding of Medicare's requirements for reasonable and necessary INPATIENT services [42 CFR 412.3e].: Yes Medical Necessity: Need Close Monitoring Due to Risk of Patient Decompensation, Need For IV Fluids, Need For Continuous Telemetry Monitoring, Need for IV Antibiotics, Risk of Complication if Not Cared For in Hospital Post Hospital Care: D/C Medical Technologist Blood Bank Documentation - Plan Summary Plan Summary: See attending physician orders.
--- NOTE | 2017-07-27 14:49 | PDOC TRANSFER SUMMARY ---
General Admission Date/PCP: 07/26/17 14:50 LANDON GARCIA Resuscitation Status: Full Code - Transfer Diagnosis (1) Symptomatic bradycardia Is this a current diagnosis for this admission?: Yes (2) Essential hypertension Is this a current diagnosis for this admission?: Yes (3) Bacteremia due to Gram-positive bacteria Is this a current diagnosis for this admission?: Yes (4) GERD (gastroesophageal reflux disease) Is this a current diagnosis for this admission?: Yes (5) Aortic stenosis Is this a current diagnosis for this admission?: Yes (6) Chronic obstructive lung disease Is this a current diagnosis for this admission?: Yes (7) Pure hypercholesterolemia Is this a current diagnosis for this admission?: Yes - Transfer Medications Home Medications: Acetaminophen [Pain Relief] 500 mg PO Q6HP PRN 06/08/15 Albuterol Sulfate [Proair HFA Inhalation Aerosol 8.5 gm MDI] 2 puff IH Q4HP PRN 06/08/15 Aspirin [Aspirin EC] 81 mg PO QHS 06/08/15 Diltiazem HCl [Cartia Xt] 240 mg PO DAILY 06/08/15 Donepezil HCl 10 mg PO DAILY 06/08/15 Fluticasone Propionate 1 spray NS BID 06/08/15 Guaifenesin [Mucinex] 600 mg PO BIDP PRN 06/08/15 Montelukast Sodium 10 mg PO DAILY 06/08/15 Difluprednate [Durezol] 5 ml OP BID 07/25/17 Esomeprazole Mag Trihydrate [Nexium] 40 mg PO DAILY 07/25/17 Fluticasone/Salmeterol [Advair 250-50 Diskus 28 dose] 1 inh IH Q12H 07/25/17 Ipratropium [place] [Atrovent 0.06% Nasal [place]] 2 spray NASL TID 07/25/17 Lactose-Reduced Food [Ensure Liquid] 237 ml PO BID 07/25/17 Loratadine [Allergy Relief] 10 mg PO DAILY 07/25/17 Rosuvastatin Calcium 20 mg PO DAILY 07/25/17 Telmisartan/Hydrochlorothiazid [Micardis HCT 80-25 mg Tablet] 1 tab PO DAILY Transfer Medications: Current Medications Acetaminophen (Tylenol 325 Mg Tablet) 487.5 mg PO Q6HP PRN PRN Reason: PAIN Stop: 08/24/17 16:33 Last Admin: 07/27/17 09:54 Dose: 487.5 mg Albuterol (Proair Hfa Inhalation Aerosol 8.5 Gm Mdi) 2 puff IH Q4HP PRN PRN Reason: FOR WHEEZING Stop: 08/24/17 15:58 Aspirin (Ecotrin 81 Mg Ec Tablet) 81 mg PO QHS KATIE Stop: 08/24/17 21:59 Last Admin: 07/26/17 22:34 Dose: 81 mg Atorvastatin Calcium (Lipitor 40 Mg Tablet) 40 mg PO QHS KATIE Stop: 08/24/17 21:59 Last Admin: 07/26/17 23:49 Dose: Not Given Donepezil HCl (Aricept 5 Mg Tablet) 10 mg PO DAILY KATIE Stop: 08/25/17 09:59 Last Admin: 07/27/17 09:51 Dose: 10 mg Fluticasone Propionate (Flonase Nasal [place] 50 Mcg/[place] 16 Gm) 1 spray NASL Q12 KATIE Stop: 08/24/17 21:59 Last Admin: 07/27/17 09:52 Dose: 1 spray Guaifenesin (Mucinex Sr 600 Mg Tablet.Sa) 600 mg PO Q12HP PRN PRN Reason: CONGESTION Stop: 08/24/17 16:19 Ceftriaxone Sodium/Dextrose (Rocephin Rtu 1 Gm/D5w 50 Ml Premix) 1 gm in 50 mls @ 100 mls/hr IV QHS KATIE Stop: 08/01/17 21:59 Last Admin: 07/26/17 22:37 Dose: 50 ml Vancomycin HCl 750 mg/ (Dextrose) 250 mls @ 166.667 mls/hr IV QPM KATEI Stop: 08/02/17 17:59 Last Admin: 07/26/17 18:54 Dose: 750 mg Ipratropium [place] (Atrovent 0.06% Nasal [place]) 2 spray NASL TID KATIE Stop: 08/24/17 17:59 Last Admin: 07/26/17 18:57 Dose: Not Given Lansoprazole (Prevacid 30 Mg Odt Tablet) 30 mg PO DAILY KATIE Stop: 08/25/17 09:59 Last Admin: 07/27/17 09:51 Dose: 30 mg Loratadine (Claritin 10 Mg Tablet) 10 mg PO QHS KATIE Stop: 08/25/17 21:59 Last Admin: 07/26/17 22:35 Dose: 10 mg Montelukast Sodium (Singulair 10 Mg Tablet) 10 mg PO QHS KATIE Stop: 08/25/17 21:59 Last Admin: 07/26/17 22:35 Dose: 10 mg Nifedipine (Procardia Xl 30 Mg Tablet) 60 mg PO DAILY KATIE Stop: 08/26/17 09:59 Last Admin: 07/27/17 11:54 Dose: Not Given Patient Own Medication (Difluprednate [Durezol]) 5 ml OP .BID KATIE Stop: 08/24/17 17:59 Patient Own Medication (Lactose-Reduced Food [Ensure Liquid]) 237 ml PO .BID KATIE Stop: 08/24/17 17:59 Patient Own Medication (Melatonin) 5 mg PO QHS KATIE Stop: 08/25/17 21:59 Fluticasone/Salmeterol (Advair 250-50 Diskus 14 Dose/Diskus) 1 inh IH Q12 KATIE Stop: 08/24/17 21:59 Last Admin: 07/27/17 09:52 Dose: 1 inh Sertraline HCl (Zoloft 50 Mg Tablet) 25 mg PO DAILY KATIE Stop: 08/25/17 09:59 Last Admin: 07/27/17 09:51 Dose: 25 mg Temazepam (Restoril 7.5 Mg Capsule) 7.5 mg PO QHS KATIE Stop: 08/02/17 21:59 Last Admin: 07/26/17 22:34 Dose: 7.5 mg - Allergies Allergies/Adverse Reactions: shellfish derived Allergy (Verified 07/25/17 10:10) - Diet/Activity Discharge Diet: Cardiac Hospital Course Hospital Course: Patient did respond to medical management with resolution of her bradycardia. There was associated blood pressure elevation with need for Clonidine administration. She was started on Nifedipine XL 60 mg po daily with intent to treat her tachycardia with Coreg if it persist. The later did improve with IV fluid administration. Her blood culture did grew gram positive cocci in clutters from one bottle. In view of presenting symptoms including generalized weakness, bradycardia and abnormal urinalysis, she was started IV Vancomycin in addition ti Rocephin for the possible urinary tract infection. She has been afebrile without any genitourinary symptoms. Her echocardiogram, cardiac enzymes and EKG did not suggest any significant acute cardiac cause for her presenting symptoms. Patient and family did request for transfer to [facility] for further evaluation and management. I spoke with covering doctor for Dr Tovar, [facility], and she has been accepted. Physical Exam Vital Signs: Temp Pulse Resp BP Pulse Ox 97.9 F 99 18 108/58 L 95 07/27/17 11:48 07/27/17 11:48 07/27/17 11:48 07/27/17 11:48 07/27/17 11:48 Intake & Output 07/26/17 07/27/17 07/28/17 06:59 06:59 06:59 Intake Total 480 Balance 480 General appearance: PRESENT: no acute distress, cooperative Head exam: PRESENT: atraumatic, normocephalic Eye exam: PRESENT: conjunctiva pink, EOMI, PERRLA. ABSENT: scleral icterus Ear exam: PRESENT: normal external ear exam Mouth exam: PRESENT: moist, tongue midline Throat exam: ABSENT: post pharyngeal erythema, tonsillar erythema, tonsillar exudate, tonsillogmegaly, other Neck exam: ABSENT: carotid bruit, JVD, lymphadenopathy, thyromegaly Respiratory exam: PRESENT: clear to auscultation eliezer. ABSENT: rales, rhonchi, wheezes Cardiovascular exam: PRESENT: RRR, +S1, +S2, systolic murmur. ABSENT: diastolic murmur, rubs Vascular exam: PRESENT: normal capillary refill. ABSENT: pallor GI/Abdominal exam: PRESENT: normal bowel sounds, soft. ABSENT: distended, guarding, mass, organolmegaly, rebound, tenderness Extremities exam: PRESENT: full ROM. ABSENT: calf tenderness, clubbing, pedal edema Neurological exam: PRESENT: alert, awake, oriented to person, oriented to place , oriented to time, oriented to situation, CN II-XII grossly intact. ABSENT: motor sensory deficit Psychiatric exam: PRESENT: appropriate affect, normal mood. ABSENT: homicidal ideation, suicidal ideation Skin exam: PRESENT: dry, intact, warm. ABSENT: cyanosis, rash Results Laboratory Results: 07/27/17 05:22 07/27/17 05:22 07/27/17 07/27/17 05:22 05:22 WBC 11.1 H RBC 4.46 Hgb 13.3 Hct 39.8 MCV 89 MCH 29.9 MCHC 33.4 RDW 14.5 H Plt Count 183 Seg Neutrophils % Not Reportable Lymphocytes % Not Reportable Monocytes % Not Reportable Eosinophils % Not Reportable Basophils % Not Reportable Absolute Neutrophils Not Reportable Absolute Lymphocytes Not Reportable Absolute Monocytes Not Reportable Absolute Eosinophils Not Reportable Absolute Basophils Not Reportable Sodium 137.9 Potassium 3.7 Chloride 103 Carbon Dioxide 23 Anion Gap 12 BUN 21 H Creatinine 1.33 H Est GFR ( Amer) 47 L Est GFR (Non-Af Amer) 39 L Glucose 148 H Calcium 10.8 H Impressions: Chest X-Ray 07/25/17 08:58 IMPRESSION: NO ACUTE RADIOGRAPHIC FINDING IN THE CHEST. Plan Discharge Plan: Transfer to Dr Phillips service at [facility]. Patient has been accepted and awaiting bed allocation. Time Spent: Greater than 30 Minutes - In care coordination, transfer request discussion with patient and daughter.
[2017-07-27] MEDS: VANCOMYCIN HCL 750 MG in DEXTROSE 5%-WATER 250 ML IV SCH (17:55)
[2017-07-27 20:19] VITALS: BP 116/78
== END 2017-07-27 20:10 | disposition short-term general hospital (02) | DRG 309 ==
LOC: ER 08:37 → UNDOADMOB 12:08 → EH 12:08 → 3S 14:05 → EH 19:23 → OBSVTOIN 07-26 14:50
PROVIDERS: ADMIT Internal Medicine Geriatric Medicine; ATTEND Internal Medicine Geriatric Medicine
DX: R00.1 Bradycardia, unspecified (principal); N39.0 Urinary tract infection, site not specified; R78.81 Bacteremia; I48.91 Unspecified atrial fibrillation; I25.10 Atherosclerotic heart disease of native coronary artery without angina pectoris; E78.5 Hyperlipidemia, unspecified; I10 Essential (primary) hypertension; E78.00 Pure hypercholesterolemia, unspecified; J45.909 Unspecified asthma, uncomplicated; J44.9 Chronic obstructive pulmonary disease, unspecified; K21.9 Gastro-esophageal reflux disease without esophagitis; M19.90 Unspecified osteoarthritis, unspecified site; Z90.49 Acquired absence of other specified parts of digestive tract; Z90.710 Acquired absence of both cervix and uterus; Z87.891 Personal history of nicotine dependence; Z79.82 Long term (current) use of aspirin; I35.0 Nonrheumatic aortic (valve) stenosis; Z91.013 Allergy to seafood
CPT/HCPCS: 36415; 51701; 71010; 80048; 80053; 81001; 82550; 82553; 82803; 82962; 83605; 84484; 85025; 85610; 87040; 87077; 87086; 87186; 93005; 93010; 93306; 96374; 99291; G0378; J0696; J1610; J2405; J3370; J3490; J7060

== ENCOUNTER → 2017-09-30 | Outpatient (CLI) | payer MEDICARE, OTHER | LOC: OD 12:25 | PROVIDERS: ATTEND Internal Medicine Geriatric Medicine | DX: E55.9 Vitamin D deficiency, unspecified (principal) | CPT/HCPCS: 82306 ==

== ENCOUNTER 2017-12-10 03:16 | Emergency (ER) | payer MEDICARE, OTHER ==
[2017-12-10] MEDS ORDERED: ASPIRIN 81 MG TABLET, CHEWABLE PO ONE (03:23)
[2017-12-10] MEDS ORDERED: OXYCODONE-ACETAMINOPHEN 5-325 MG TABLET PO ONE (03:51)
[2017-12-10] MEDS ORDERED: ONDANSETRON 4 MG TAB.RAPDIS PO ONE (03:51)
--- NOTE | 2017-12-10 03:52 | ER Document Report ---
ED Neck/Back Problem - General Mode of Arrival: Wheelchair Information source: Patient TRAVEL OUTSIDE OF THE [place] IN LAST 30 DAYS: No - HPI Patient complains to provider of: Neck, Lower back Onset: Other - 2 weeks ago Associated symptoms: Other - see notes above <MEGAN RODRIGUEZ - Last Filed: 12/10/17 04:20> <JERMAINESERGIOJENNIFER MCKENZIE MONICA - Last Filed: 12/10/17 07:56> - General Chief Complaint: Neck Pain >24hrs old Stated Complaint: NECK/SHOULDER PAIN Time Seen by Provider: 12/10/17 03:20 Notes: 76 year old female presents to the ED complaining of neck and bilateral lower back pain (left worse than right) that started 2 weeks ago. Patient was seen in [place], had a CT performed, and was discharged with 600 mg Ibuprofen and Flexeril. Patient states that the medication hasn't been working and her pain is getting worse. Patient additionally has a sharp pain starting in her left arm that radiates up to her shoulder and to her left breast. Patient has been having difficulty getting out of bed secondary to pain and has to move her entire upper body to compensate for her neck pain. Around Whitney time the patient developed a severe cough and had associated pain to her neck from the constant coughing. Patient has not followed up with her PCP. PCP: Dr. Galvan (MEGAN RODRIGUEZ) - Related Data Allergies/Adverse Reactions: shellfish derived Allergy (Verified 07/25/17 10:10) Past Medical History - Social History Family History: Reviewed & Not Pertinent - Past Medical History Cardiac Medical History: Reports: Hx Atrial Fibrillation, Hx Coronary Artery Disease - hifh chol , Hx Hypercholesterolemia, Hx Hypertension Denies: Hx Heart Attack Pulmonary Medical History: Reports: Hx Asthma, Hx Bronchitis, Hx COPD, Hx Pneumonia Neurological Medical History: Denies: Hx Cerebrovascular Accident, Hx Seizures GI Medical History: Reports: Hx Gastroesophageal Reflux Disease, Hx Hiatal Hernia. Denies: Hx Hepatitis, Hx Ulcer Musculoskeltal Medical History: Reports Hx Arthritis Psychiatric Medical History: Reports: Hx Anxiety, Hx Depression - not needed medication Infectious Medical History: Denies: Hx Hepatitis Past Surgical History: Reports: Hx Adenoidectomy, Hx Hysterectomy, Hx Tonsillectomy. Denies: Hx Mastectomy, Hx Open Heart Surgery, Hx Pacemaker - Immunizations Hx Diphtheria, Pertussis, Tetanus Vaccination: Yes Hx Pneumococcal Vaccination: 12/02/13 <MEGAN RODRIGUEZ - Last Filed: 12/10/17 04:20> - Social History Smoking Status: Unknown if Ever Smoked <JENNIFER SMILEY - Last Filed: 12/10/17 07:56> Review of Systems - Review of Systems -: Yes All other systems reviewed and negative <JENNIFER SMILEY - Last Filed: 12/10/17 07:56> Physical Exam - Vital signs Interpretation: Normal - General General appearance: Appears well, Alert - HEENT Head: Normocephalic, Atraumatic Eyes: Normal Pupils: PERRL Neck: Other - Paraspinal tenderness to palpation C5-C7 - Respiratory Respiratory status: No respiratory distress Chest status: Tender - Left chest wall tenderness to palpation, Pain on movement Breath sounds: Normal Chest palpation: Normal - Cardiovascular Rhythm: Regular Heart sounds: Normal auscultation Murmur: No - Abdominal Inspection: Normal Distension: No distension Bowel sounds: Normal Tenderness: Nontender Organomegaly: No organomegaly - Back Back: Normal, Tender - Tenderness to palpation over bilateral trapezius. Tenderness to palpation medial scapula bilaterally left greater than right. - Extremities General upper extremity: Normal inspection, Nontender, Normal color, Normal ROM , Normal temperature General lower extremity: Normal inspection, Nontender, Normal color, Normal ROM , Normal temperature, Normal weight bearing. No: She's sign - Neurological Neuro grossly intact: Yes Cognition: Normal Orientation: AAOx4 [place] Coma Scale Eye Opening: Spontaneous Ger Coma Scale Verbal: Oriented Ger Coma Scale Motor: Obeys Commands Ger Coma Scale Total: 15 Speech: Normal Motor strength normal: LUE, RUE, LLE, RLE Sensory: Normal - Psychological Associated symptoms: Normal affect, Normal mood - Skin Skin Temperature: Warm Skin Moisture: Dry Skin Color: Normal <JENNIFER SMILEY - Last Filed: 12/10/17 07:56> - Vital signs Vitals: Pulse Ox 96 12/10/17 03:23 Course <MEGAN RODRIGUEZ - Last Filed: 12/10/17 04:20> - Laboratory Result Diagrams: 12/10/17 04:15 12/10/17 05:05 - Diagnostic Test Radiology reviewed: Reports reviewed - EKG Interpretation by Ca EKG shows normal: Sinus rhythm Rate: Normal Rhythm: NSR <JENNIFER SMILEY - Last Filed: 12/10/17 07:56> - Re-evaluation Re-evalutation: 12/10/17 07:00 Patient is a 77-year-old female who comes in complaining of back and neck pain. Patient was seen at [facility] for similar symptoms. Chest x-ray within normal limits. No acute findings on blood work including negative troponin. Patient was given ibuprofen and Flexeril at [facility] but is still having pain. Patient has had some relief with Percocet here. It does make her somewhat somnolent so patient will be discharged home with a lower dose. Patient will also be given a referral to primary care doctor. Recommend adjuvant therapies such as massage therapy. Patient and daughter are agreeable to this plan. Vitals are stable. Return if any worsening or concerning symptoms. Of note, the patient is neurovascularly intact with full range of motion and strength of her extremities bilaterally, upper and lower. Stable for discharge. (JENNIFER SMILEY) - Vital Signs Vital signs: Temp Pulse Resp BP Pulse Ox 97.9 F 98 15 136/86 H 96 12/10/17 07:15 12/10/17 07:15 12/10/17 07:15 12/10/17 07:15 12/10/17 07:15 - Laboratory Laboratory results interpreted by me: 12/10/17 12/10/17 04:15 05:05 WBC 11.2 H RDW 14.4 H Plt Count 485 H BUN 21 H Est GFR ( Amer) 52 L Est GFR (Non-Af Amer) 43 L Glucose 149 H Calcium 11.2 H AST 13 L Discharge <MEGAN RODRIGUEZ - Last Filed: 12/10/17 04:20> <JENNIFER SMILEY - Last Filed: 12/10/17 07:56> - Discharge Clinical Impression: Muscle spasm Condition: Stable Disposition: HOME, SELF-CARE Instructions: Muscle Strain ([facility]), Myalagia (Muscle Pain) ([facility]) Prescriptions: Lidocaine [Lidoderm 5% (700 mg) Transdermal Patch] 1 patch TP DAILY #30 adh..patch Oxycodone HCl/Acetaminophen [Percocet 2.5-325 Mg Tablet] 1 each PO BIDP PRN #10 tablet PRN Reason: Referrals: KERI WHYTE MD [ACTIVE STAFF] - Follow up in 3-5 days Scribe Attestation: 12/10/17 07:56 I personally performed the services described in the documentation, reviewed and edited the documentation which was dictated to the scribe in my presence, and it accurately records my words and actions. (JENNIFER SMILEY) Scribe Documentation - Scribe Written by Scribe:: Olivia Mccrary, 12/10/2017 0421 acting as scribe for :: Juvenal <MEGAN RODRIGUEZ - Last Filed: 12/10/17 04:20>
[2017-12-10 04:40] LABS: ABSOLUTE BASOPHILS # (AUTO) 0.1 10^3/uL (0.0-0.2); ABSOLUTE EOSINOPHILS # (AUTO) 0.3 10^3/uL (0.0-0.6); ABSOLUTE LYMPHOCYTES (AUTO) 2.6 10^3/uL (0.5-4.7); ABSOLUTE MONOCYTES (AUTO) 0.8 10^3/uL (0.1-1.4); ABSOLUTE NEUT (AUTO) 7.4 10^3/uL (1.7-8.2); BASOPHILS % (AUTO) 1.3 % (0-2); EOSINOPHILS % (AUTO) 2.7 % (0-6); HEMATOCRIT 37.9 % (36.0-47.0); HEMOGLOBIN 12.5 g/dL (12.0-15.5); LYMPHOCYTES % (AUTO) 22.9 % (13-45); MEAN CORPUSCULAR HGB CONC 33.1 g/dL (32.0-36.0); MEAN CORPUSCULAR VOLUME 88 fl (80-97); PLATELET COUNT 485 10^3/uL (150-450); RED BLOOD COUNT 4.31 10^6/uL (3.72-5.28); RED CELL DISTRIBUTION WIDTH 14.4 % (11.5-14.0); SEGMENTED NEUTROPHILS % (AUTO) 66.1 % (42-78); TOTAL CELLS COUNTED % (AUTO) 100 %; WHITE BLOOD COUNT 11.2 10^3/uL (4.0-10.5)
[2017-12-10 04:42] LABS: INTERNATIONAL RATION (INR) 0.94; PROTHROMBIN TIME 13.3 SEC (11.4-15.4)
--- NOTE | 2017-12-10 04:56 | RADIOLOGY REPORT (SQ) ---
EXAM DESCRIPTION: CHEST SINGLE VIEW CLINICAL HISTORY: PAIN COMPARISON: 07/25/2017 FINDINGS: Single frontal view of the chest. Tortuosity of thoracic aorta. Heart is not enlarged. Low lung volumes. Leads overlie the chest. No consolidation, pneumothorax, or pleural effusion. No displaced rib fractures identified. Upper abdominal soft tissues are unremarkable. IMPRESSION: 1. No acute pulmonary process identified.
[2017-12-10 05:38] LABS: ALANINE AMINOTRANSFERASE 16 U/L (9-52); ALKALINE PHOSPHATASE 89 U/L (38-126); ANION GAP 12 (5-19); ASPARTATE AMINO TRANSFERASE 13 U/L (14-36); BILIRUBIN,DIRECT 0.2 mg/dL (0.0-0.4); BILIRUBIN,TOTAL 0.2 mg/dL (0.2-1.3); BLOOD UREA NITROGEN 21 mg/dL (7-20); CALCIUM 11.2 mg/dL (8.4-10.2); CARBON DIOXIDE 25 mmol/L (22-30); CHLORIDE 104 mmol/L (98-107); CREATINE KINASE 67 U/L (30-135); GLUCOSE 149 mg/dL (75-110); POTASSIUM 3.9 mmol/L (3.6-5.0); SODIUM 141.1 mmol/L (137-145); TOTAL PROTEIN 7.1 g/dL (6.3-8.2)
[2017-12-10 06:05] LABS: CREATINE KINASE MB 0.96 ng/mL (<4.55)
[2017-12-10 06:06] LABS: TROPONIN I < 0.012 ng/mL
--- NOTE | 2017-12-10 06:38 | EKG REPORT ---
SEVERITY:- ABNORMAL ECG - SINUS TACHYCARDIA LEFT ANTERIOR FASCICULAR BLOCK LVH WITH SECONDARY REPOLARIZATION ABNORMALITY : Confirmed by: Pete Kline MD 10-Dec-2017 06:37:21
[2017-12-10 07:17] VITALS: BP 136/86
== END 2017-12-10 07:17 | disposition home or self-care (01) ==
LOC: ER 03:16
DX: M62.838 Other muscle spasm (principal); M54.2 Cervicalgia; M54.5 Low back pain
CPT/HCPCS: 93005; 99284; 36415; 82553; 82550; 85025; 85610; 80053; 84484; 71045; 93010; A9270 ×3; S0119

== ENCOUNTER 2018-12-01 13:54 | Emergency (ER) | payer MEDICARE, OTHER ==
--- NOTE | 2018-12-01 15:58 | ER Document Report ---
Addendum entered and electronically signed by GREGG BURR PA 12/02/18 03:57: Course - Re-evaluation Re-evalutation: 12/02/18 03:57 Transport was supposed to be here between 2 and 3, this was delayed. Patient still a symptomatic on reevaluation. Heart rate in the 50s now. Blood pressure is 150s systolic. Patient should be transported around shift change. No current complaints. Denies chest pain. - Vital Signs Vital signs: Temp Pulse Resp BP Pulse Ox 98.1 F 18 131/60 H 99 12/01/18 14:05 12/02/18 02:16 12/02/18 02:16 12/02/18 02:16 - Laboratory Result Diagrams: 12/01/18 17:00 12/01/18 17:00 Laboratory results interpreted by me: 12/01/18 12/01/18 12/01/18 17:00 17:00 17:26 RDW 14.8 H Chloride 109 H Est GFR (Non-Af Amer) 50 L Calcium 11.0 H Creatine Kinase 161 H Ur Leukocyte Esterase TRACE H Addendum entered and electronically signed by GREGG BURR PA 12/01/18 23:01: Course - Re-evaluation Re-evalutation: 12/01/18 23:00 Patient reevaluated at bedside. She is smiling when I entered the room. She states that she feels "great" now. She still has a heart rate of 37 but her systolic blood pressure is now 140. Most likely the reason she improved as she is recovered from the transient hypotension. She still denies chest pain, she is not diaphoretic, she is not confused. She has no additional complaints. Patient has a room assignment but transport is delayed until probably around 2-3 AM. We will continue to monitor. - Vital Signs Vital signs: Temp Pulse Resp BP Pulse Ox 98.1 F 11 L 113/65 100 12/01/18 14:05 12/01/18 22:01 12/01/18 22:01 12/01/18 22:01 - Laboratory Result Diagrams: 12/01/18 17:00 12/01/18 17:00 Laboratory results interpreted by me: 12/01/18 12/01/18 12/01/18 17:00 17:00 17:26 RDW 14.8 H Chloride 109 H Est GFR (Non-Af Amer) 50 L Calcium 11.0 H Creatine Kinase 161 H Ur Leukocyte Esterase TRACE H Addendum entered and electronically signed by GREGG BURR PA 12/01/18 22:23: Course - Re-evaluation Re-evalutation: 12/01/18 22:20 Patient's heart rate in the 30s. Consistently at 37 at this time. I reevaluated patient at bedside. She does not have chest pain, she is not diaphoretic, she is not confused, she states that currently she has no complaints. Her blood pressure shows systolic of 109. I discussed with Dr. Griggs. Because patient is asymptomatic at this time, and because this most likely secondary to the metoprolol from earlier she could be given glucagon, she could be given atropine or epinephrine, however because patient is not asymptomatic it is not felt that she would benefit from this at this time. Patient will be reevaluated very closely, patient is family members at bedside state they will alert us if she has any complaints or changes at all. No additional interventions at this time. - Vital Signs Vital signs: Temp Pulse Resp BP Pulse Ox 98.1 F 11 L 113/65 100 12/01/18 14:05 12/01/18 22:01 12/01/18 22:01 12/01/18 22:01 - Laboratory Result Diagrams: 12/01/18 17:00 12/01/18 17:00 Laboratory results interpreted by me: 12/01/18 12/01/18 12/01/18 17:00 17:00 17:26 RDW 14.8 H Chloride 109 H Est GFR (Non-Af Amer) 50 L Calcium 11.0 H Creatine Kinase 161 H Ur Leukocyte Esterase TRACE H Addendum entered and electronically signed by GREGG BURR PA 12/01/18 21:12: Course - Re-evaluation Re-evalutation: 12/01/18 21:10 Patient had normalization of blood pressure after small IV fluid bolus of 500 ccs. still bradycardic in the 40s, did reach down to 36 on one occasion but no heart rate in the 30s noted recently. Patient became hypotensive when she got up to go to bedside toilet. She also becomes lightheaded when she does this. She is still bradycardic and somewhat hypotensive after receiving the metoprolol dosing earlier. She does not complain of chest pain. She is alert, responsive, oriented, well-appearing at this time. Bed assignment received, pending transport. - Vital Signs Vital signs: Temp Pulse Resp BP Pulse Ox 98.1 F 19 104/65 100 12/01/18 14:05 12/01/18 19:49 12/01/18 19:49 12/01/18 19:49 - Laboratory Result Diagrams: 12/01/18 17:00 12/01/18 17:00 Laboratory results interpreted by me: 12/01/18 12/01/18 12/01/18 17:00 17:00 17:26 RDW 14.8 H Chloride 109 H Est GFR (Non-Af Amer) 50 L Calcium 11.0 H Creatine Kinase 161 H Ur Leukocyte Esterase TRACE H Original Note: ED General - General Chief Complaint: Dizziness Stated Complaint: DIZZINESS Time Seen by Provider: 12/01/18 15:43 Mode of Arrival: Ambulatory Information source: Parent Notes: Patient presents to emergency department with her family for complaints of feeling dizzy. Patient reports she had an episode on [place] irvin and the symptoms went away. This morning she felt it again. She reports she feels like she is dizzy even laying in the bed. She reports that she became very diaphoretic with the dizziness. Family at the bedside reports patient is acting normal. Patient reports she has been eating drinking as normal. Patient denies trauma. Reports she has not fallen and hit her head. Denies chest pain. Denies shortness of breath. Reports history of subdural hematoma approximately 14 years ago. She reports that she had to learn to do everything over again. Denies residual. Reports history of cardiac disease. Reports she was going to get a stent but upon evaluation by a cath and echo they decided it was more due to the thickness of the wall and she did not need to get a stent. her green marketing analyst Dr Wagner is at [place] [facility]. Her primary care provider is at [facility]. TRAVEL OUTSIDE OF THE [place] IN LAST 30 DAYS: No - HPI Onset: This morning - and once on phillip irvin Onset/Duration: Sudden, Persistent Quality of pain: No pain Severity: None Pain Level: Denies Associated symptoms: Nausea Exacerbated by: Denies Relieved by: Denies Similar symptoms previously: No Recently seen / treated by doctor: No - Related Data Allergies/Adverse Reactions: shellfish derived Allergy (Verified 07/25/17 10:10) Past Medical History - General Information source: Patient - Social History Smoking Status: Never Smoker Chew tobacco use (# tins/day): No Frequency of alcohol use: None Drug Abuse: None Family History: Reviewed & Not Pertinent Patient has suicidal ideation: No Patient has homicidal ideation: No - Past Medical History Cardiac Medical History: Reports: Hx Atrial Fibrillation, Hx Coronary Artery Disease - hifh chol , Hx Hypercholesterolemia, Hx Hypertension Denies: Hx Heart Attack Pulmonary Medical History: Reports: Hx Asthma, Hx Bronchitis, Hx COPD, Hx Pneumonia Neurological Medical History: Reports: Other - Subdural hematoma. Denies: Hx Cerebrovascular Accident, Hx Seizures Renal/ Medical History: Denies: Hx Peritoneal Dialysis GI Medical History: Reports: Hx Gastroesophageal Reflux Disease, Hx Hiatal Hernia. Denies: Hx Hepatitis, Hx Ulcer Musculoskeletal Medical History: Reports Hx Arthritis Psychiatric Medical History: Reports: Hx Anxiety, Hx Depression - not needed medication Infectious Medical History: Denies: Hx Hepatitis Past Surgical History: Reports: Hx Adenoidectomy, Hx Hysterectomy, Hx Tonsillectomy. Denies: Hx Mastectomy, Hx Open Heart Surgery, Hx Pacemaker - Immunizations Hx Diphtheria, Pertussis, Tetanus Vaccination: Yes Hx Pneumococcal Vaccination: 12/02/13 Review of Systems - Review of Systems Notes: Review HPI for review of systems., All other systems negative Physical Exam - Vital signs Vitals: Temp Resp BP Pulse Ox 98.1 F 18 200/98 H 97 12/01/18 14:05 12/01/18 14:05 12/01/18 14:05 12/01/18 14:05 - Notes Notes: PHYSICAL EXAMINATION: GENERAL: Well-appearing and in no acute distress HEAD: Atraumatic, normocephalic. EYES: Pupils equal round and reactive to light, extraocular movements intact, sclera anicteric, conjunctiva are normal. ENT: nares patent, oropharynx clear without exudates. Moist mucous membranes. NECK: Normal range of motion, supple without lymphadenopathy LUNGS: CTAB and equal. No wheezes rales or rhonchi. HEART: Regular rate and rhythm without murmurs ABDOMEN: Soft, no tenderness. No guarding, no rebound EXTREMITIES: Normal range of motion, no pitting edema. No cyanosis. NEUROLOGICAL: Cranial nerves grossly intact. Normal sensory/motor exams. PSYCH: Normal mood, normal affect. SKIN: Warm, Dry, normal turgor, no rashes or lesions noted - Cardiovascular Rhythm: Regular Murmur: Yes - Neurological Neuro grossly intact: Yes Cognition: Normal Orientation: AAOx4 [place] Coma Scale Eye Opening: Spontaneous Ger Coma Scale Verbal: Oriented [place] Coma Scale Motor: Obeys Commands [place] Coma Scale Total: 15 Speech: Normal Cranial nerves: Normal Motor strength normal: LUE, RUE, LLE, RLE Additional motor exam normals: Equal furnace cleaner Course - Re-evaluation Re-evalutation: 12/01/18 18:15 Patient and family instructed on results of labs which are unremarkable and CT and chest x-ray which are unremarkable. Patient and family instructed on second set of troponin. Plan of care which will probably include admission for observation. All questions answered. Patient reports she is thirsty. Declines Tylenol. Reports her headache is gone. Blood pressure is 153/79 now after Lopressor. Patient reports her green marketing analyst is Dr. Wagner at [facility] [facility] and primary care provider is at [facility]. Family was instructed on repeat troponin. Plan of care is of troponin does not elevate she will be admitted here. If she has changes will transfer to her green marketing analyst at [facility] [facility]. Family and patient agrees with plan. Patient denies symptoms at this time. 12/01/18 18:56 Blood pressure dropping 108/65 heart rate is 40 repeat EKG ordered patient reports she feels winded. Denies the dizziness. EKG had changed, further T wave inversion noted. Dr. Griggs consulted advised bolus, 500 ml and then recheck BP, arrange for transport to patient's green marketing analyst. Consulted Dr. Duran at [facility]. Updated on patient's past medical history updated on current status. He agrees with transfer and accepts patient to the cardiology floor. Discussed Lovenox which he declines, reports patient takes aspirin every day so not necessary at this time. Discussed transfer with patient. Family and patient agrees to transfer. Report given to Gregg ORDOÑEZ, family and patient introduced to Gregg. Patient denies chest pain reports she still feels a little winded. EMTALA signed, demographics and radiology report faxed/pushed to [facility] - Vital Signs Vital signs: Temp Pulse Resp BP Pulse Ox 98.1 F 19 104/65 100 12/01/18 14:05 12/01/18 19:49 12/01/18 19:49 12/01/18 19:49 - Laboratory Result Diagrams: 12/01/18 17:00 12/01/18 17:00 Laboratory results interpreted by me: 12/01/18 12/01/18 12/01/18 17:00 17:00 17:26 RDW 14.8 H Chloride 109 H Est GFR (Non-Af Amer) 50 L Calcium 11.0 H Creatine Kinase 161 H Ur Leukocyte Esterase TRACE H - Diagnostic Test Radiology reviewed: Image reviewed, Reports reviewed - EXAM DESCRIPTION: CT HEAD WITHOUT COMPLETED DATE/TIME: 12/01/2018 4:39 pm REASON FOR STUDY: DIZZY COMPARISON: None. TECHNIQUE: Axial images acquired through the brain without intravenous contrast. Images reviewed with bone, brain and subdural windows. Additional sagittal and coronal reconstructions were generated. Images stored on PACS. All CT scanners at this facility use dose modulation, iterative reconstruction, and/or weight based dosing when appropriate to reduce radiation dose to as low as reasonably achievable (ALARA). [facility]: Dose Right [facility]: CareDose [facility]: Dose Right [facility]: Teradose 4D [facility]: [employer] [place] [employer] RADIATION DOSE: CT Rad equipment meets quality standard of care and radiation dose reduction techniques were employed. CTDIvol: 53.2 mGy. DLP: 1017 mGy-cm. mGy. LIMITATIONS: None. FINDINGS: VENTRICLES: Normal size and contour. CEREBRUM: No masses. No hemorrhage. No midline shift. No evidence for acute infarction. Normal moran/white matter differentiation. No areas of low density in the white matter. CEREBELLUM: No masses. No hemorrhage. No alteration of density. No evidence for acute infarction. EXTRAAXIAL SPACES: No fluid collections. No masses. ORBITS AND GLOBE: No intra- or extraconal masses. Normal contour of globe without masses. CALVARIUM: No fracture. Previous left craniotomy. PA RANASAL SINUSES: No fluid or mucosal thickening. SOFT TISSUES: No mass or hematoma. OTHER: No other significant finding. IMPRESSION: NORMAL BRAIN CT WITHOUT CONTRAST. PREVIOUS LEFT CRANIOTOMY. EVIDENCE OF ACUTE STROKE: NO. COMMENT: Quality ID # [id number]: Final reports with documentation of one or more dose reduction techniques (e.g., Automated exposure control, adjustment of the mA and/or kV according to patient size, use of iterative reconstruction technique) EXAM DESCRIPTION: CHEST 2 VIEWS COMPLETED DATE/TIME: 12/01/2018 4:24 pm REASON FOR STUDY: cough, dizzy COMPARISON: 12/10/2017. EXAM PARAMETERS: NUMBER OF VIEWS: two views TECHNIQUE: Digital Frontal and Lateral radiographic views of the chest acquired. RADIATION DOSE: NA LIMITATIONS: none FINDINGS: LUNGS AND PLEURA: No opacities, masses or pneumothorax. No pleural effusion. MEDIASTINUM AND HILAR STRUCTURES: No masses or contour abnormalities. HEART AND VASCULAR STRUCTURES: Heart normal size. No evidence for failure. BONES: No acute findings. HARDWARE: None in the chest. Clips in the upper abdomen. OTHER: No other significant finding. IMPRESSION: NO ACUTE RADIOGRAPHIC FINDING IN THE CHEST. - EKG Interpretation by Me EKG shows normal: Sinus rhythm Rate: Normal When compared to previous EKG there are: Changes noted Additional EKG results interpreted by me: 12/01/18 16:51 t wave inversion anterio lateral - Transfer of Care Care transferred to [facility] provider: GREGG ORDOÑEZ Discharge - Discharge Clinical Impression: Dizziness, Bradycardia, Acute electrocardiogram changes Condition: Stable Disposition: [facility] Referrals: LANDON GARCIA MD [Primary Care Provider] - Follow up as needed
--- NOTE | 2018-12-01 16:36 | RADIOLOGY REPORT (SQ) ---
EXAM DESCRIPTION: CHEST 2 VIEWS COMPLETED DATE/TIME: 12/01/2018 4:24 pm REASON FOR STUDY: cough, dizzy COMPARISON: 12/10/2017. EXAM PARAMETERS: NUMBER OF VIEWS: two views TECHNIQUE: Digital Frontal and Lateral radiographic views of the chest acquired. RADIATION DOSE: NA LIMITATIONS: none FINDINGS: LUNGS AND PLEURA: No opacities, masses or pneumothorax. No pleural effusion. MEDIASTINUM AND HILAR STRUCTURES: No masses or contour abnormalities. HEART AND VASCULAR STRUCTURES: Heart normal size. No evidence for failure. BONES: No acute findings. HARDWARE: None in the chest. Clips in the upper abdomen. OTHER: No other significant finding. IMPRESSION: NO ACUTE RADIOGRAPHIC FINDING IN THE CHEST. TECHNICAL DOCUMENTATION: JOB ID: [id number] [employer]- All Rights Reserved Reading location - IP/workstation name: [email or web address]
[2018-12-01] MEDS ORDERED: METOPROLOL TARTRATE 50 MG TABLET PO ONE (16:48)
--- NOTE | 2018-12-01 16:48 | RADIOLOGY REPORT (SQ) ---
EXAM DESCRIPTION: CT HEAD WITHOUT COMPLETED DATE/TIME: 12/01/2018 4:39 pm REASON FOR STUDY: DIZZY COMPARISON: None. TECHNIQUE: Axial images acquired through the brain without intravenous contrast. Images reviewed wi th bone, brain and subdural windows. Additional sagittal and coronal reconstructions were generated. Images stored on PACS. All CT scanners at this facility use dose modulation, iterative reconstruction, and/or weight based d osing when appropriate to reduce radiation dose to as low as reasonably achievable (ALARA). [facility]: Dose Right [facility]: CareDose [facility]: Dose Right [facility]: Teradose 4D [facility]: [employer] RADIATION DOSE: CT Rad equipment meets quality standard of care and radiation dose reduction techniq ues were employed. CTDIvol: 53.2 mGy. DLP: 1017 mGy-cm. mGy. LIMITATIONS: None. FINDINGS: VENTRICLES: Normal size and contour. CEREBRUM: No masses. No hemorrhage. No midline shift. No evidence for acute infarction. Normal gra y/white matter differentiation. No areas of low density in the white matter. CEREBELLUM: No masses. No hemorrhage. No alteration of density. No evidence for acute infarction. EXTRAAXIAL SPACES: No fluid collections. No masses. ORBITS AND GLOBE: No intra- or extraconal masses. Normal contour of globe without masses. CALVARIUM: No fracture. Previous left craniotomy. PARANASAL SINUSES: No fluid or mucosal thickening. SOFT TISSUES: No mass or hematoma. OTHER: No other significant finding. IMPRESSION: NORMAL BRAIN CT WITHOUT CONTRAST. PREVIOUS LEFT CRANIOTOMY. EVIDENCE OF ACUTE STROKE: NO. COMMENT: Quality ID # [id number]: Final reports with documentation of one or more dose reduction techniques (e.g., Automated exposure control, adjustment of the mA and/or kV according to patient size, use of iterative reconstruction technique) TECHNICAL DOCUMENTATION: JOB ID: [id number] [employer]- All Rights Reserved Reading location - IP/workstation name: [email or web address]
[2018-12-01 17:24] LABS: ABSOLUTE BASOPHILS # (AUTO) 0.1 10^3/uL (0.0-0.2); ABSOLUTE EOSINOPHILS # (AUTO) 0.1 10^3/uL (0.0-0.6); ABSOLUTE LYMPHOCYTES (AUTO) 3.8 10^3/uL (0.5-4.7); ABSOLUTE MONOCYTES (AUTO) 0.5 10^3/uL (0.1-1.4); ABSOLUTE NEUT (AUTO) 3.9 10^3/uL (1.7-8.2); BASOPHILS % (AUTO) 0.7 % (0-2); EOSINOPHILS % (AUTO) 1.5 % (0-6); HEMATOCRIT 42.1 % (36.0-47.0); HEMOGLOBIN 14.3 g/dL (12.0-15.5); LYMPHOCYTES % (AUTO) 44.8 % (13-45); MEAN CORPUSCULAR HEMOGLOBIN 30.3 pg (27.0-33.4); MEAN CORPUSCULAR HGB CONC 33.9 g/dL (32.0-36.0); MEAN CORPUSCULAR VOLUME 89 fl (80-97); MONOCYTES % (AUTO) 6.3 % (3-13); PLATELET COUNT 231 10^3/uL (150-450); RED BLOOD COUNT 4.71 10^6/uL (3.72-5.28); RED CELL DISTRIBUTION WIDTH 14.8 % (11.5-14.0); SEGMENTED NEUTROPHILS % (AUTO) 46.7 % (42-78); TOTAL CELLS COUNTED % (AUTO) 100 %; WHITE BLOOD COUNT 8.4 10^3/uL (4.0-10.5)
[2018-12-01 17:39] LABS: ALANINE AMINOTRANSFERASE 19 U/L (9-52); ALBUMIN 4.3 g/dL (3.5-5.0); ALKALINE PHOSPHATASE 107 U/L (38-126); ASPARTATE AMINO TRANSFERASE 24 U/L (14-36); BILIRUBIN,DIRECT 0.3 mg/dL (0.0-0.4); BILIRUBIN,TOTAL 0.4 mg/dL (0.2-1.3); BLOOD UREA NITROGEN 14 mg/dL (7-20); CREATINE KINASE 161 U/L (30-135); GLUCOSE 100 mg/dL (75-110); POTASSIUM 4.2 mmol/L (3.6-5.0); TOTAL PROTEIN 7.2 g/dL (6.3-8.2)
[2018-12-01 17:44] LABS: ANION GAP 5 (5-19); CARBON DIOXIDE 28 mmol/L (22-30); CHLORIDE 109 mmol/L (98-107); SODIUM 142.3 mmol/L (137-145)
[2018-12-01 17:47] LABS: CREATINE KINASE MB 1.61 ng/mL (<4.55)
[2018-12-01 17:51] LABS: TROPONIN I < 0.012 ng/mL
[2018-12-01 17:54] LABS: APPEARANCE,URINE CLEAR; BILIRUBIN,URINE NEGATIVE (NEGATIVE); COLOR,URINE YELLOW; GLUCOSE, URINE NEGATIVE (NEGATIVE); KETONES,URINE NEGATIVE (NEGATIVE); LEUKOCYTE ESTERASE,URINE TRACE (NEGATIVE); NITRITE,URINE NEGATIVE (NEGATIVE); PROTEIN,URINE NEGATIVE (NEGATIVE); URINE SPECIFIC GRAVITY 1.009; UROBILINOGEN,URINE NEGATIVE mg/dL (<2.0)
[2018-12-01] MEDS ORDERED: NORMAL SALINE 1000 ML 500 ML IV ONE (19:03)
--- NOTE | 2018-12-01 23:37 | EKG REPORT ---
SEVERITY:- ABNORMAL ECG - SINUS RHYTHM LEFT ANTERIOR FASCICULAR BLOCK LVH WITH SECONDARY REPOLARIZATION ABNORMALITY : Confirmed by: Ramonita Gonzalez MD 01-Dec-2018 23:36:17
--- NOTE | 2018-12-01 23:37 | EKG REPORT ---
SEVERITY:- ABNORMAL ECG - SINUS BRADYCARDIA SHORT HI INTERVAL, ACCELERATED AV CONDUCTION LEFT AXIS DEVIATION LVH WITH SECONDARY REPOLARIZATION ABNORMALITY ST DEPRESSION AND T INVERSION, CONSIDER ISCHEMIA, DIFFUSE LDS ANTERIOR ST ELEVATION, PROBABLY DUE TO LVH : Confirmed by: Ramonita Gonzalez MD 01-Dec-2018 23:36:22
[2018-12-02 07:06] VITALS: BP 130/82
--- NOTE | 2018-12-02 07:59 | ER Document Report ---
ED Medical Screen (RME) - General Chief Complaint: Dizziness Stated Complaint: DIZZINESS Time Seen by Provider: 12/01/18 15:43 Mode of Arrival: Ambulatory TRAVEL OUTSIDE OF THE [place] IN LAST 30 DAYS: No - Related Data Allergies/Adverse Reactions: shellfish derived Allergy (Verified 07/25/17 10:10) Past Medical History - Social History Chew tobacco use (# tins/day): No Frequency of alcohol use: None Drug Abuse: None - Past Medical History Cardiac Medical History: Reports: Hx Atrial Fibrillation, Hx Coronary Artery D isease - hifh chol , Hx Hypercholesterolemia, Hx Hypertension Denies: Hx Heart Attack Pulmonary Medical History: Reports: Hx Asthma, Hx Bronchitis, Hx COPD, Hx Pneumonia Neurological Medical History: Reports: Other - Subdural hematoma. Denies: Hx C erebrovascular Accident, Hx Seizures Renal/ Medical History: Denies: Hx Peritoneal Dialysis GI Medical History: Reports: Hx Gastroesophageal Reflux Disease, Hx Hiatal Hernia. Denies: Hx Hepatitis, Hx Ulcer Musculoskeltal Medical History: Reports Hx Arthritis Psychiatric Medical History: Reports: Hx Anxiety, Hx Depression - not needed medication Infectious Medical History: Denies: Hx Hepatitis Past Surgical History: Reports: Hx Adenoidectomy, Hx Hysterectomy, Hx Tonsillectomy. Denies: Hx Mastectomy, Hx Open Heart Surgery, Hx Pacemaker - Immunizations Hx Diphtheria, Pertussis, Tetanus Vaccination: Yes Physical Exam - Vital signs Vitals: Temp Resp BP Pulse Ox 98.1 F 18 200/98 H 97 12/01/18 14:05 12/01/18 14:05 12/01/18 14:05 12/01/18 14:05 Course - Re-evaluation Re-evalutation: 12/02/18 07:58 Patient is stable for transfer - Vital Signs Vital signs: Temp Pulse Resp BP Pulse Ox 98.1 F 11 L 130/82 H 100 12/01/18 14:05 12/02/18 07:01 12/02/18 07:01 12/02/18 07:01 - Laboratory Result Diagrams: 12/01/18 17:00 12/01/18 17:00 Laboratory results interpreted by me: 12/01/18 12/01/18 12/01/18 17:00 17:00 17:26 RDW 14.8 H Chloride 109 H Est GFR (Non-Af Amer) 50 L Calcium 11.0 H Creatine Kinase 161 H Ur Leukocyte Esterase TRACE H Doctor's Discharge - Discharge Clinical Impression: Dizziness, Bradycardia, Acute electrocardiogram changes Condition: Stable Disposition: [facility] Referrals: LANDON GARCIA MD [Primary Care Provider] - Follow up as needed
== END 2018-12-02 08:00 | disposition short-term general hospital (02) ==
LOC: ER 13:54
DX: R00.1 Bradycardia, unspecified (principal); I95.9 Hypotension, unspecified; R42 Dizziness and giddiness; R11.0 Nausea; R61 Generalized hyperhidrosis; I10 Essential (primary) hypertension; I25.10 Atherosclerotic heart disease of native coronary artery without angina pectoris; J44.9 Chronic obstructive pulmonary disease, unspecified; Z91.013 Allergy to seafood; Z79.82 Long term (current) use of aspirin
CPT/HCPCS: 93005; 99285; 96360; 36415; 82553; 82550; 85025; 80053; 81001; 84484; 71046; 70450; 93010; A9270; J7030

== ENCOUNTER → 2019-11-26 | Outpatient (CLI) | payer MEDICARE, OTHER ==
--- NOTE | 2019-11-26 13:37 | RADIOLOGY REPORT (SQ) ---
EXAM DESCRIPTION: U/S RETROPERITON (RENAL/AORTA) COMPLETED DATE/TIME: 11/26/2019 1:04 pm REASON FOR STUDY: CKD III (N18.3) N18.3 CHRONIC KIDNEY DISEASE, STAGE 3 (MODERATE) COMPARISON: None. TECHNIQUE: Dynamic and static grayscale images acquired of the kidneys and bladder and recorded on P ACS. Additional selected color Doppler and spectral images recorded. LIMITATIONS: None. FINDINGS: RIGHT KIDNEY: Normal size measuring 8.7 cm. Normal echogenicity. No solid or suspicious ma sses. No hydronephrosis. No calcifications. LEFT KIDNEY: Asymmetrically small measuring 7.4 cm. Normal echogenicity. No solid or suspicious mass es. No hydronephrosis. No calcifications. BLADDER: Decompressed. Bladder jets visualized. OTHER FINDINGS: No other significant finding. IMPRESSION: No hydronephrosis. Mild asymmetrically small left kidney. Otherwise unremarkable renal ultrasound. TECHNICAL DOCUMENTATION: JOB ID: [id number] [employer]- All Rights Reserved Reading location - IP/workstation name: [email or web address]
== END ==
LOC: RAD 12:26
PROVIDERS: ATTEND Internal Medicine Nephrology
DX: N18.3 Chronic kidney disease, stage 3 (moderate) (principal); N27.0 Small kidney, unilateral
CPT/HCPCS: 76770

== ENCOUNTER → 2020-01-08 | Outpatient (CLI) | payer MEDICARE, OTHER ==
[2020-01-11 15:36] LABS: FREE KAPPA LIGHT CHAINS 29.1 mg/L (3.3-19.4); FREE LAMBDA LIGHT CHAINS 16.3 mg/L (5.7-26.3)
[2020-01-11 15:42] LABS: KAPPA LAMBDA RATIO 1.79 (0.26-1.65)
== END ==
LOC: OD 09:46
PROVIDERS: ATTEND Internal Medicine Nephrology
DX: N18.3 Chronic kidney disease, stage 3 (moderate) (principal); E83.52 Hypercalcemia; E21.3 Hyperparathyroidism, unspecified
CPT/HCPCS: 36415; 82164; 82397; 83883; 84165

== ENCOUNTER → 2020-01-12 | Outpatient (CLI) | payer MEDICARE, OTHER ==
--- NOTE | 2020-01-12 17:16 | RADIOLOGY REPORT (SQ) ---
EXAM DESCRIPTION: CHEST PA/LATERAL COMPLETED DATE/TIME: 01/12/2020 5:04 pm REASON FOR STUDY: HYPERCALCEMIA COMPARISON: 12/01/2018 EXAM PARAMETERS: NUMBER OF VIEWS: two views TECHNIQUE: Digital Frontal and Lateral radiographic views of the chest acquired. RADIATION DOSE: NA LIMITATIONS: none FINDINGS: LUNGS AND PLEURA: No opacities, masses or pneumothorax. No pleural effusion. MEDIASTINUM AND HILAR STRUCTURES: No masses or contour abnormalities. HEART AND VASCULAR STRUCTURES: Cardiomegaly. Tortuosity of the thoracic aorta. No evidence for sabina lure. BONES: No acute findings. HARDWARE: Interval placement of left-sided cardiac pacemaker with the tip of the leads in the right atrium and right ventricle. None in the chest. OTHER: No other significant finding. IMPRESSION: 1. Since the prior study dated 12/01/2018, interval placement of left sided cardiac pac emaker. 2. No acute pulmonary consolidation. 3. Cardiomegaly. No evidence for failure. TECHNICAL DOCUMENTATION: JOB ID: [id number] 2010 [employer]- All Rights Reserved Reading location - IP/workstation name: [email or web address]
== END ==
LOC: RAD 16:43
PROVIDERS: ATTEND Internal Medicine Nephrology
DX: E83.52 Hypercalcemia (principal); I51.7 Cardiomegaly
CPT/HCPCS: 71046

== ENCOUNTER → 2020-01-12 | Outpatient (CLI) | payer MEDICARE, OTHER ==
--- NOTE | 2020-01-12 14:02 | RADIOLOGY REPORT (SQ) ---
EXAM DESCRIPTION: NM PARATHYROID IMAGING COMPLETED DATE/TIME: 01/12/2020 1:42 pm REASON FOR STUDY: HYPERCALCEMIA (E83.52), HYPERPARATHYROIDISM (E21.3) E83.52 HYPERCALCEMIA E21.3 H YPERPARATHYROIDISM, UNSPECIFIED COMPARISON: 09/16/2014. RADIONUCLIDE AND DOSE: 20.7 millicuries Tc-99m Sestamibi. The route of agent administration: Intravenous ADDITIONAL DRUGS AND DOSES: None. TECHNIQUE: Early and delayed images of the neck acquired following radionuclide administration. LIMITATIONS: None. FINDINGS: Thyroid: Normal size. Homogeneous activity. Normal washout. No focal lesions. Parathyroid: No retained activity in the thyroid or elsewhere in the neck to indicate a parathyroid a denoma. Other: No other significant findings. IMPRESSION: NORMAL STUDY. NO EVIDENCE OF PARATHYROID ADENOMA. TECHNICAL DOCUMENTATION: JOB ID: [id number] 2010 [employer]- All Rights Reserved Reading location - IP/workstation name: [email or web address]
== END ==
LOC: RAD 09:51
PROVIDERS: ATTEND Internal Medicine Nephrology
DX: E83.52 Hypercalcemia (principal); E21.3 Hyperparathyroidism, unspecified
CPT/HCPCS: 78070; A9500; Q9969

== ENCOUNTER → 2020-02-24 | Outpatient (CLI) | payer MEDICARE, OTHER ==
[2020-02-24 13:11] LABS: ANION GAP 10 (5-19); BLOOD UREA NITROGEN 23 mg/dL (7-20); CALCIUM 11.1 mg/dL (8.4-10.2); CARBON DIOXIDE 24 mmol/L (22-30); CHLORIDE 106 mmol/L (98-107); GLUCOSE 140 mg/dL (75-110); POTASSIUM 4.2 mmol/L (3.6-5.0)
== END ==
LOC: OD 12:31
PROVIDERS: ATTEND Internal Medicine Nephrology
DX: I12.9 Hypertensive chronic kidney disease with stage 1 through stage 4 chronic kidney disease, or unspecified chronic kidney disease (principal); N18.3 Chronic kidney disease, stage 3 (moderate); N25.81 Secondary hyperparathyroidism of renal origin; E83.52 Hypercalcemia
CPT/HCPCS: 36415; 80048; 83970

== ENCOUNTER 2020-08-26 15:26 | Emergency (ER) | payer MEDICARE ==
[2020-08-26] MEDS ORDERED: ONDANSETRON HCL INJ/PF 4 MG/2 ML SDV IV ONE (17:23)
[2020-08-26] MEDS ORDERED: MECLIZINE HCL 25 MG TABLET PO ONE (17:23)
--- NOTE | 2020-08-26 17:31 | ER Document Report ---
ED Dizziness/Weakness - General Chief Complaint: Nausea/Vomiting Stated Complaint: NAUSEA/VOMITING/DIZZINESS Time Seen by Provider: 08/26/20 16:59 Primary Care Provider: KATHY CADET MD [COMMUNITY BASED STAFF] - 08/29/20 LEONIE ROBLES MD [Primary Care Provider] - Follow up as needed Information source: Patient Notes: Patient reports dizziness in which she notes a rotational movement of the room. Patient reports that this causes her to become nauseated and she vomited twice today. Patient reports symptoms started yesterday around 8 AM. Patient reports symptoms are worse with movement and changes in position. Patient denies any fever, cough, shortness of breath or chest pain. Patient denies any headache or pain symptoms at this time. Patient does report some sinus congestion symptoms for several days. TRAVEL OUTSIDE OF THE [place] IN LAST 30 DAYS: No - HPI Patient complains to provider of: Dizziness, Vertigo Onset: Yesterday Onset/Duration: Waxing and waning Quality of pain: No pain Associated symptoms: Dizzy, Nausea, Vertigo, Vomiting. denies: Chest pain, Confused, Headache, Short of breath Exacerbated by: Change in position Baseline gait: Walks w/o assistance - Related Data Allergies/Adverse Reactions: shellfish derived Allergy (Verified 08/26/20 15:44) Past Medical History - General Information source: Patient - Social History Smoking Status: Never Smoker Chew tobacco use (# tins/day): No Frequency of alcohol use: None Drug Abuse: None Occupation: None Lives with: Alone Family History: Reviewed & Not Pertinent Patient has homicidal ideation: No - Past Medical History Cardiac Medical History: Reports: Hx Coronary Artery Disease - hifh chol , Hx Hypercholesterolemia, Hx Hypertension Denies: Hx Heart Attack Pulmonary Medical History: Reports: Hx Asthma, Hx Bronchitis, Hx COPD - told she does not have this, Hx Pneumonia Neurological Medical History: Denies: Hx Cerebrovascular Accident, Hx Seizures Renal/ Medical History: Reports: Hx Kidney Stones, Hx Renal Insufficiency. Denies: Hx Peritoneal Dialysis GI Medical History: Reports: Hx Gastroesophageal Reflux Disease, Hx Hiatal Hernia. Denies: Hx Hepatitis, Hx Ulcer Musculoskeletal Medical History: Reports Hx Arthritis Psychiatric Medical History: Reports: Hx Anxiety, Hx Depression - not needed medication Infectious Medical History: Denies: Hx Hepatitis Past Surgical History: Reports: Hx Adenoidectomy, Hx Hysterectomy, Hx Orthopedic Surgery - rthr, Hx Tonsillectomy - Immunizations Hx Diphtheria, Pertussis, Tetanus Vaccination: Yes Hx Pneumococcal Vaccination: 12/02/13 Review of Systems - Review of Systems Constitutional: No symptoms reported. denies: Fever, Recent illness EENT: Nose congestion, Sinus pressure, Sinus discharge Cardiovascular: Dizziness. denies: Chest pain Respiratory: No symptoms reported. denies: Cough, Short of breath Gastrointestinal: Nausea, Vomiting. denies: Abdominal pain, Diarrhea Genitourinary: No symptoms reported. denies: Dysuria, Flank pain Female Genitourinary: No symptoms reported Musculoskeletal: No symptoms reported. denies: Back pain, Neck pain Skin: No symptoms reported Hematologic/Lymphatic: No symptoms reported Neurological/Psychological: No symptoms reported. denies: Confusion, Weakness, Headaches Physical Exam - Vital signs Vitals: Temp Pulse Resp BP Pulse Ox 97.7 F 64 16 134/63 H 99 08/26/20 15:40 08/26/20 15:40 08/26/20 15:40 08/26/20 15:40 08/26/20 15:40 - Notes Notes: PHYSICAL EXAMINATION: GENERAL: Well-appearing and in no acute distress. HEAD: Atraumatic, normocephalic. EYES: sclera anicteric, conjunctiva are normal. ENT: Clear rhinorrhea. Moist mucous membranes. NECK: No meningismus, normal range of motion, supple without lymphadenopathy LUNGS: CTAB and equal. No wheezes rales or rhonchi. HEART: Regular rate and rhythm without murmurs ABDOMEN: Soft, nontender, normal bowel sounds, no guarding. EXTREMITIES: Normal range of motion, no pitting edema. No cyanosis. BACK: No midline tenderness, no step-off or deformity. NEUROLOGICAL: Cranial nerves grossly intact with the exception of gait instability. Normal speech. PSYCH: Normal mood, normal affect. SKIN: Warm, Dry, normal turgor, no rashes or lesions noted - HEENT Head: Normocephalic Eyes: Normal Extraocular movements intact: Yes - Unidirectional horizontal nystagmus to the right - Neurological Neuro grossly intact: Yes Cognition: Normal Orientation: AAOx4 Wesley Coma Scale Eye Opening: Spontaneous Ger Coma Scale Verbal: Oriented Ger Coma Scale Motor: Obeys Commands Wesley Coma Scale Total: 15 Speech: Normal. No: Dysarthria, Expressive aphasia, Receptive aphasia Cranial nerves: Normal. No: Gaze palsy, Tongue deviation Cerebellar coordination: Finger-nose rhombey, Rapid alt. movements Motor strength normal: LUE, RUE, LLE, RLE Course - Re-evaluation Re-evalutation: 08/26/20 17:31 Attempted hints exam, patient unable complete test, patient resistant with any movement of the head by the provider. Patient can move head on her own without guarding or limitation but has difficulty following instructions for examination 08/26/20 19:58 Patient reports feeling better and denies any dizzy symptoms at this time. Patient denies any chest pain symptoms or dyspnea symptoms. CT scan reviewed, patient does have chronic findings from her previous craniotomy although no acute findings worrisome for stroke. Patient does have mild elevation of creatinine compared to her most recent results on file. Bolus of IV fluids will be administered given her vomiting over the past [address] arellano regarding patient presentation, EKG reviewed as well as the remainder of her diagnostic evaluation. Patient presents with symptoms consistent with peripheral vertigo. Dr. arellano advises treating symptomatically as well as considering treatment for sinus congestion symptoms. - Vital Signs Vital signs: Temp Pulse Resp BP Pulse Ox 97.6 F 75 14 148/71 H 95 08/26/20 21:21 08/26/20 21:21 08/26/20 21:21 08/26/20 21:21 08/26/20 21:21 - Laboratory Result Diagrams: 08/26/20 17:43 08/26/20 17:43 Laboratory results interpreted by me: 08/26/20 08/26/20 08/26/20 17:43 17:43 20:18 RDW 14.2 H Lymph % (Auto) 48.9 H BUN 30 H Creatinine 1.91 H Est GFR ( Amer) 31 L Est GFR (MDRD) Non-Af 25 L Glucose 112 H Calcium 11.6 H Lipase 514.5 H Urine Protein 30 H Urine Glucose (UA) >=500 H Urine Blood SMALL H Ur Leukocyte Esterase LARGE H - Diagnostic Test Radiology reviewed: Reports reviewed - EKG Interpretation by Me EKG shows normal: Sinus rhythm When compared to previous EKG there are: Changes noted, Other - Patient with paced rhythm rate of 65, QTc 479 Discharge - Discharge Clinical Impression: Renal function impairment, Vertigo, Sinus congestion Nausea & vomiting Qualifiers: Vomiting type: unspecified Vomiting Intractability: unspecified Qualified Code(s): R11.2 - Nausea with vomiting, unspecified UTI (urinary tract infection) Qualifiers: Urinary tract infection type: site unspecified Hematuria presence: with hematuria Qualified Code(s): N39.0 - Urinary tract infection, site not specified Condition: Stable Disposition: HOME, SELF-CARE Instructions: Antinausea Medication ([facility]), Intravenous (IV) Fluids ([facility]), Urinary Tract Infection ([facility]), Vertigo ([facility]), Vomiting ([facility]) Additional Instructions: Return immediately for any new or worsening symptoms Followup with your primary care provider, call tomorrow to make a followup appointment Your creatinine was mildly elevated today as compared to your previous, this could be due to either dehydration from your vomiting. Contact your primary doctor to have this test repeated. Prescriptions: Meclizine HCl [Antivert 25 mg Tablet] 25 mg PO ASDIR PRN #20 tablet PRN Reason: Cefdinir 300 mg PO BID #20 capsule Ondansetron [Zofran Odt 4 mg Tablet] 1 tab PO Q6H PRN #15 tab.rapdis PRN Reason: Referrals: LEONIE ROBLES MD [Primary Care Provider] - Follow up as needed KATHY CADET MD [COMMUNITY BASED STAFF] - 08/29/20
--- NOTE | 2020-08-26 17:51 | RADIOLOGY REPORT (SQ) ---
EXAM DESCRIPTION: CHEST SINGLE VIEW IMAGES COMPLETED DATE/TIME: 08/26/2020 5:41 pm REASON FOR STUDY: dizziness, vomiting COMPARISON: 01/12/2020 EXAM PARAMETERS: NUMBER OF VIEWS: One view. TECHNIQUE: Single frontal radiographic view of the chest acquired. RADIATION DOSE: NA LIMITATIONS: None. FINDINGS: LUNGS AND PLEURA: No opacities, masses or pneumothorax. No pleural effusion. MEDIASTINUM AND HILAR STRUCTURES: No masses. Contour normal. HEART AND VASCULAR STRUCTURES: Heart normal in size. Normal vasculature. BONES: No acute findings. HARDWARE: Pacemaker/defibrillator. OTHER: No other significant finding. IMPRESSION: NO ACUTE RADIOGRAPHIC FINDING IN THE CHEST. TECHNICAL DOCUMENTATION: JOB ID: [id number] 2010 [employer]- All Rights Reserved Reading location - IP/workstation name: [email or web address]
[2020-08-26 18:07] LABS: ABSOLUTE EOSINOPHILS # (AUTO) 0.1 10^3/uL (0.0-0.6); ABSOLUTE LYMPHOCYTES (AUTO) 4.1 10^3/uL (0.5-4.7); ABSOLUTE MONOCYTES (AUTO) 0.5 10^3/uL (0.1-1.4); ABSOLUTE NEUT (AUTO) 3.6 10^3/uL (1.7-8.2); BASOPHILS % (AUTO) 0.4 % (0-2); EOSINOPHILS % (AUTO) 1.5 % (0-6); HEMATOCRIT 40.2 % (36.0-47.0); HEMOGLOBIN 13.9 g/dL (12.0-15.5); LYMPHOCYTES % (AUTO) 48.9 % (13-45); MEAN CORPUSCULAR HEMOGLOBIN 31.4 pg (27.0-33.4); MEAN CORPUSCULAR HGB CONC 34.6 g/dL (32.0-36.0); MEAN CORPUSCULAR VOLUME 91 fl (80-97); PLATELET COUNT 278 10^3/uL (150-450); RED BLOOD COUNT 4.43 10^6/uL (3.72-5.28); RED CELL DISTRIBUTION WIDTH 14.2 % (11.5-14.0); SEGMENTED NEUTROPHILS % (AUTO) 43.2 % (42-78); TOTAL CELLS COUNTED % (AUTO) 100 %; WHITE BLOOD COUNT 8.3 10^3/uL (4.0-10.5)
[2020-08-26 18:26] LABS: ALBUMIN 4.5 g/dL (3.5-5.0); ALKALINE PHOSPHATASE 85 U/L (38-126); ANION GAP 11 (5-19); ASPARTATE AMINO TRANSFERASE 23 U/L (14-36); BILIRUBIN,DIRECT 0.3 mg/dL (0.0-0.4); BILIRUBIN,TOTAL 0.5 mg/dL (0.2-1.3); BLOOD UREA NITROGEN 30 mg/dL (7-20); CALCIUM 11.6 mg/dL (8.4-10.2); CARBON DIOXIDE 28 mmol/L (22-30); CHLORIDE 103 mmol/L (98-107); GLUCOSE 112 mg/dL (75-110); POTASSIUM 3.7 mmol/L (3.6-5.0); TOTAL PROTEIN 7.5 g/dL (6.3-8.2)
--- NOTE | 2020-08-26 18:27 | RADIOLOGY REPORT (SQ) ---
EXAM DESCRIPTION: CT HEAD WITHOUT IMAGES COMPLETED DATE/TIME: 08/26/2020 6:16 pm REASON FOR STUDY: dizziness, vomiting, gait abnormal COMPARISON: 12/01/[address] TECHNIQUE: Axial images acquired through the brain without intravenous contrast. Images reviewed wi th bone, brain and subdural windows. Additional sagittal and coronal reconstructions were generated. Images stored on PACS. All CT scanners at this facility use dose modulation, iterative reconstruction, and/or weight based d osing when appropriate to reduce radiation dose to as low as reasonably achievable (ALARA). [facility]: Dose Right [facility]: CareDose [facility]: Dose Right [facility]: Teradose 4D [facility]: [employer] RADIATION DOSE: CT Rad equipment meets quality standard of care and radiation dose reduction techniq ues were employed. CTDIvol: 53.2 mGy. DLP: 937 mGy-cm. mGy. LIMITATIONS: None. FINDINGS: VENTRICLES: Normal size and contour. CEREBRUM: No CT evidence of acute large territory ischemic change, acute intracranial hemorrhage, mas s effect, or midline shift. There minimal bifrontal deep white matter small vessel. CEREBELLUM: No masses. No hemorrhage. No alteration of density. No evidence for acute infarction. EXTRAAXIAL SPACES: 11 mm calcified mass along the right clivus/cerebellopontine angle likely meningio ma. This is unchanged from CT brain 12/01/2018 ORBITS AND GLOBE: No intra- or extraconal masses. Normal contour of globe without masses. CALVARIUM: Left frontoparietal craniotomy. PARANASAL SINUSES: No fluid or mucosal thickening. SOFT TISSUES: No mass or hematoma. OTHER: No other significant finding. IMPRESSION: No acute findings. Old left frontal craniotomy Minimal bifrontal white matter disease, chronic 11 mm right posterior fossa calcified meningioma, unchanged 2018 EVIDENCE OF ACUTE STROKE: NO. COMMENT: Quality ID # [id number]: Final reports with documentation of one or more dose reduction techniques (e.g., Automated exposure control, adjustment of the mA and/or kV according to patient size, use of iterative reconstruction technique) TECHNICAL DOCUMENTATION: JOB ID: [id number] 2010 [employer]- All Rights Reserved Reading location - IP/workstation name: [email or web address]
[2020-08-26] MEDS ORDERED: NORMAL SALINE 1000 ML 1,000 ML IV ONE (19:53)
[2020-08-26 20:38] LABS: APPEARANCE,URINE TURBID; BILIRUBIN,URINE NEGATIVE (NEGATIVE); COLOR,URINE YELLOW; GLUCOSE, URINE >=500 mg/dL (NEGATIVE); KETONES,URINE NEGATIVE (NEGATIVE); LEUKOCYTE ESTERASE,URINE LARGE (NEGATIVE); NITRITE,URINE NEGATIVE (NEGATIVE); PROTEIN,URINE 30 mg/dL (NEGATIVE); UROBILINOGEN,URINE NEGATIVE mg/dL (<2.0)
[2020-08-26] MEDS ORDERED: CEFTRIAXONE 1 GM/D5W RTU 1 GM/50 ML RTUPB IV ONE (20:45)
--- NOTE | 2020-08-26 21:26 | EKG REPORT ---
SEVERITY:- ABNORMAL ECG - SINUS RHYTHM LEFT BUNDLE BRANCH BLOCK LBBB NEW SINCE EKG OF 12/01/18 : Confirmed by: Ramonita Gonzalez MD 26-Aug-2020 21:25:51
[2020-08-26 21:41] VITALS: BP 148/71
== END 2020-08-26 21:42 | disposition home or self-care (01) ==
LOC: ER 15:26
DX: N39.0 Urinary tract infection, site not specified (principal); N28.9 Disorder of kidney and ureter, unspecified; R09.81 Nasal congestion; R11.2 Nausea with vomiting, unspecified; R42 Dizziness and giddiness; E78.00 Pure hypercholesterolemia, unspecified; I10 Essential (primary) hypertension; Z87.442 Personal history of urinary calculi
CPT/HCPCS: 93005; 99285; 96361; 96375; 96365; 36415; 87086; 83690; 85025; 87088; 80053; 81001; 84484; 87186; 71045; 70450; 93010; A9270; J2405; J7030; J0696

== ENCOUNTER → 2020-08-31 | Outpatient (CLI) | payer MEDICARE, OTHER ==
--- NOTE | 2020-08-31 16:08 | RADIOLOGY REPORT (SQ) ---
EXAM DESCRIPTION: BONE SURVEY COMPLETE IMAGES COMPLETED DATE/TIME: 08/31/2020 3:47 pm REASON FOR STUDY: (D47.2)MONOCLONAL GAMMOPATHY;(D72.820)LYMPHOCYTOSIS (SYMPTOMATIC) COMPARISON: None. TECHNIQUE: Images of the axial and proximal appendicular skeleton are obtained, along with lateral s kull and frontal chest films. LIMITATIONS: Jewelry artifact overlying skull. FINDINGS: AP CHEST: No bony findings. Lungs are clear. LATERAL SKULL: No worrisome bone lesions. AP BOTH HUMERI: No worrisome bone lesions. TWO-VIEW LUMBAR SPINE: No worrisome bone lesions. TWO-VIEW THORACIC SPINE: No worrisome bone lesions. AP PELVIS: No worrisome bone lesions. AP BOTH FEMURS: No worrisome bone lesions. OTHER: Defibrillator. Right hip arthroplasty. IMPRESSION: Negative bone survey. Reading location - IP/workstation name: [email or web address]
== END ==
LOC: RAD 15:16
PROVIDERS: ATTEND Internal Medicine
DX: D47.2 Monoclonal gammopathy (principal); D72.820 Lymphocytosis (symptomatic)
CPT/HCPCS: 77075

== ENCOUNTER 2020-09-20 14:07 | Emergency (ER) | payer MEDICARE, OTHER ==
--- NOTE | 2020-09-20 15:16 | ER Document Report ---
ED Medical Screen (RME) - General Chief Complaint: Abnormal Lab Results Stated Complaint: ABNORMAL LABS Time Seen by Provider: 09/20/20 15:04 Primary Care Provider: KATHY ROSADO MD [Primary Care Provider] - Follow up as needed TRAVEL OUTSIDE OF THE [place] IN LAST 30 DAYS: No - HPI Notes: 09/20/20 15:13 79-year-old female with a history of a defibrillator/pacemaker, hypertrophic obstructive cardiomegaly, GERD presents to the emergency room for abnormal labs, her calcium was 11.9, creatinine was 2.2, BUN 29 and patient is also complaining of intermittent substernal chest pain and palpitations that started approximately 40 minutes ago. Denies any radiation of chest pain, denies any shortness of breath. Denies any fevers or chills. Was advised by Dr. Rosado, PCP to come to the emergency room for hypercalcemia. Denies any nausea vomiting diarrhea, abdominal pain. I have greeted and performed a rapid initial assessment of this patient. A comprehensive ED assessment and evaluation of the patient, analysis of test results and completion of the medical decision making process will be conducted by additional ED providers. PHYSICAL EXAMINATION: GENERAL: Chronically ill malnourished and in no acute distress NECK: Normal range of motion CV: s1, s2 regular LUNGS: No respiratory distress - Related Data Allergies/Adverse Reactions: shellfish derived Allergy (Verified 09/20/20 15:01) Past Medical History - Social History Chew tobacco use (# tins/day): No Frequency of alcohol use: None Drug Abuse: None - Past Medical History Cardiac Medical History: Reports: Hx Atrial Fibrillation, Hx Coronary Artery Disease - hifh chol , Hx Hypercholesterolemia, Hx Hypertension Denies: Hx Heart Attack Pulmonary Medical History: Reports: Hx Asthma, Hx Bronchitis, Hx COPD - told she does not have this, Hx Pneumonia Neurological Medical History: Denies: Hx Cerebrovascular Accident, Hx Seizures Renal/ Medical History: Reports: Hx Kidney Stones, Hx Renal Insufficiency. Denies: Hx Peritoneal Dialysis GI Medical History: Reports: Hx Gastroesophageal Reflux Disease, Hx Hiatal Hernia. Denies: Hx Hepatitis, Hx Ulcer Musculoskeltal Medical History: Reports Hx Arthritis Psychiatric Medical History: Reports: Hx Anxiety, Hx Depression - not needed medication Infectious Medical History: Denies: Hx Hepatitis Past Surgical History: Reports: Hx Adenoidectomy, Hx Hysterectomy, Hx Orthopedic Surgery - rthr, Hx Tonsillectomy. Denies: Hx Mastectomy, Hx Open Heart Surgery, Hx Pacemaker - Immunizations Hx Diphtheria, Pertussis, Tetanus Vaccination: Yes Physical Exam - Vital signs Vitals: Temp Pulse Resp BP Pulse Ox 98.0 F 66 16 115/64 98 09/20/20 14:38 09/20/20 14:38 09/20/20 14:38 09/20/20 14:38 09/20/20 14:38 Course - Vital Signs Vital signs: Temp Pulse Resp BP Pulse Ox 98.0 F 66 16 115/64 98 09/20/20 15:01 09/20/20 14:38 09/20/20 14:38 09/20/20 14:38 09/20/20 14:38 Doctor's Discharge - Discharge Referrals: KATHY ROSADO MD [Primary Care Provider] - Follow up as needed
--- NOTE | 2020-09-20 16:18 | RADIOLOGY REPORT (SQ) ---
EXAM DESCRIPTION: CHEST SINGLE VIEW IMAGES COMPLETED DATE/TIME: 09/20/2020 4:04 pm REASON FOR STUDY: chest pain x 1 hour COMPARISON: 08/26/2020. EXAM PARAMETERS: NUMBER OF VIEWS: One view. TECHNIQUE: Single frontal radiographic view of the chest acquired. RADIATION DOSE: NA LIMITATIONS: None. FINDINGS: LUNGS AND PLEURA: No opacities, masses or pneumothorax. No pleural effusion. MEDIASTINUM AND HILAR STRUCTURES: No masses. Contour normal. HEART AND VASCULAR STRUCTURES: Heart normal in size. Normal vasculature. BONES: No acute findings. HARDWARE: Defibrillator. OTHER: No other significant finding. IMPRESSION: NO ACUTE RADIOGRAPHIC FINDING IN THE CHEST. TECHNICAL DOCUMENTATION: JOB ID: [id number] 2010 [employer]- All Rights Reserved Reading location - IP/workstation name: [email or web address]
[2020-09-20 16:19] LABS: HEMATOCRIT 41.8 % (36.0-47.0); HEMOGLOBIN 14.2 g/dL (12.0-15.5); MEAN CORPUSCULAR HEMOGLOBIN 30.4 pg (27.0-33.4); MEAN CORPUSCULAR HGB CONC 33.9 g/dL (32.0-36.0); MEAN CORPUSCULAR VOLUME 90 fl (80-97); PLATELET COUNT 267 10^3/uL (150-450); RED BLOOD COUNT 4.67 10^6/uL (3.72-5.28); RED CELL DISTRIBUTION WIDTH 14.3 % (11.5-14.0); WHITE BLOOD COUNT 7.8 10^3/uL (4.0-10.5)
[2020-09-20 16:41] LABS: ALBUMIN 4.5 g/dL (3.5-5.0); ALKALINE PHOSPHATASE 88 U/L (38-126); ANION GAP 11 (5-19); ASPARTATE AMINO TRANSFERASE 22 U/L (14-36); BILIRUBIN,DIRECT 0.3 mg/dL (0.0-0.4); BILIRUBIN,TOTAL 0.5 mg/dL (0.2-1.3); BLOOD UREA NITROGEN 33 mg/dL (7-20); CALCIUM 11.5 mg/dL (8.4-10.2); CARBON DIOXIDE 26 mmol/L (22-30); CHLORIDE 102 mmol/L (98-107); GLUCOSE 132 mg/dL (75-110); POTASSIUM 3.4 mmol/L (3.6-5.0); TOTAL PROTEIN 7.3 g/dL (6.3-8.2)
[2020-09-20 16:56] LABS: ABSOLUTE LYMPHOCYTES# (MANUAL) 4.1 10^3/uL (0.5-4.7); ABSOLUTE MONOCYTES # (MANUAL) 0.2 10^3/uL (0.1-1.4); ANISOCYTOSIS SLIGHT; BASOPHILS % (MANUAL) 0 % (0-2); EOSINOPHILS % (MANUAL) 5 % (0-6); LYMPHOCYTES % (MANUAL) 53 % (13-45); MONOCYTES % (MANUAL) 3 % (3-13); PLATELET COMMENT ADEQUATE; SEGMENTED NEUTROPHILS % (MAN) 39 % (42-78); TOTAL CELLS COUNTED 100
[2020-09-20 17:21] LABS: APPEARANCE,URINE SLIGHTLY-CLOUDY; BILIRUBIN,URINE NEGATIVE (NEGATIVE); COLOR,URINE YELLOW; GLUCOSE, URINE 50 mg/dL (NEGATIVE); KETONES,URINE NEGATIVE (NEGATIVE); LEUKOCYTE ESTERASE,URINE LARGE (NEGATIVE); NITRITE,URINE NEGATIVE (NEGATIVE); PROTEIN,URINE NEGATIVE (NEGATIVE); URINE SPECIFIC GRAVITY 1.009; UROBILINOGEN,URINE NEGATIVE mg/dL (<2.0)
[2020-09-20] MEDS ORDERED: NORMAL SALINE 1000 ML 1,000 ML IV ONE (17:42)
[2020-09-20] MEDS ORDERED: CEFTRIAXONE 1 GM/D5W RTU 1 GM/50 ML RTUPB IV ONE (17:54)
--- NOTE | 2020-09-20 18:09 | ER Document Report ---
ED General - General Chief Complaint: Abnormal Lab Results Stated Complaint: ABNORMAL LABS Time Seen by Provider: 09/20/20 15:04 Primary Care Provider: KATHY CADET MD [Primary Care Provider] - Follow up as needed Mode of Arrival: Ambulatory Information source: Patient TRAVEL OUTSIDE OF THE [place] IN LAST 30 DAYS: No - HPI Notes: Patient presents with a complaint that she was referred here by her primary care doctor. She states she went to her primary care doctor due to having a recheck for urinary tract infection. She states her doctor did some labs and called her today and told her that her calcium was high and that she should come to the emergency department. Patient states she has not had any significant symptoms. She has no new dizziness. No new abdominal pain. She states is still does burn when she urinates however. She states she has had no confusion or headaches. No vomiting or diarrhea. Patient states that her discomfort is only with urination and she has no discomfort when she is not urinating. It is a burning sensation. Does not radiate. Mild in intensity. - Related Data Allergies/Adverse Reactions: shellfish derived Allergy (Verified 09/20/20 15:01) Past Medical History - General Information source: Patient - Social History Smoking Status: Never Smoker Chew tobacco use (# tins/day): No Frequency of alcohol use: None Drug Abuse: None Family History: Reviewed & Not Pertinent Patient has homicidal ideation: No - Past Medical History Cardiac Medical History: Reports: Hx Atrial Fibrillation, Hx Coronary Artery Disease - hifh chol , Hx Hypercholesterolemia, Hx Hypertension Denies: Hx Heart Attack Pulmonary Medical History: Reports: Hx Asthma, Hx Bronchitis, Hx COPD - told she does not have this, Hx Pneumonia Neurological Medical History: Denies: Hx Cerebrovascular Accident, Hx Seizures Renal/ Medical History: Reports: Hx Kidney Stones, Hx Renal Insufficiency. Denies: Hx Peritoneal Dialysis GI Medical History: Reports: Hx Gastroesophageal Reflux Disease, Hx Hiatal Hernia. Denies: Hx Hepatitis, Hx Ulcer Musculoskeletal Medical History: Reports Hx Arthritis Psychiatric Medical History: Reports: Hx Anxiety, Hx Depression - not needed medication Infectious Medical History: Denies: Hx Hepatitis Past Surgical History: Reports: Hx Adenoidectomy, Hx Cardiac Surgery - pacemaker/defib, Hx Hysterectomy, Hx Orthopedic Surgery - rthr, Hx Tonsillectomy. Denies: Hx Mastectomy, Hx Open Heart Surgery, Hx Pacemaker - Immunizations Hx Diphtheria, Pertussis, Tetanus Vaccination: Yes Hx Pneumococcal Vaccination: 12/02/13 Review of Systems - Review of Systems Constitutional: denies: Chills, Fever Cardiovascular: denies: Chest pain, Palpitations Respiratory: denies: Cough, Short of breath -: Yes All other systems reviewed and negative Physical Exam - Vital signs Vitals: Temp Pulse Resp BP Pulse Ox 98.0 F 66 16 115/64 98 09/20/20 14:38 09/20/20 14:38 09/20/20 14:38 09/20/20 14:38 09/20/20 14:38 Interpretation: Normal - General General appearance: Appears well, Alert - HEENT Head: Normocephalic, Atraumatic Eyes: Normal Pupils: PERRL - Respiratory Respiratory status: No respiratory distress Chest status: Nontender Breath sounds: Normal Chest palpation: Normal - Cardiovascular Rhythm: Regular Heart sounds: Normal auscultation Murmur: No - Abdominal Inspection: Normal Distension: No distension Bowel sounds: Normal Tenderness: Nontender Organomegaly: No organomegaly - Back Back: Normal, Nontender - Extremities General upper extremity: Normal inspection, Nontender, Normal color, Normal ROM, Normal temperature General lower extremity: Normal inspection, Nontender, Normal color, Normal ROM, Normal temperature, Normal weight bearing. No: She's sign - Neurological Neuro grossly intact: Yes Cognition: Normal Orientation: AAOx4 Marion Coma Scale Eye Opening: Spontaneous Ger Coma Scale Verbal: Oriented [place] Coma Scale Motor: Obeys Commands Marion Coma Scale Total: 15 Speech: Normal Motor strength normal: LUE, RUE, LLE, RLE Sensory: Normal - Psychological Associated symptoms: Normal affect, Normal mood - Skin Skin Temperature: Warm Skin Moisture: Dry Skin Color: Normal Course - Re-evaluation Re-evalutation: 09/20/20 18:07 Patient presents secondary to being referred by her primary care physician for a high calcium. Her calcium here is 11.5. It was actually 1.63 weeks ago. Her creatinine is slightly bumped. I will give the patient a liter of fluid. She still does have a urinary tract infection. This seems unusual because patient was adequately treated with cefdinir for 10 days and the E. coli was susceptible to all cephalosporins. This would explain why the patient still has burning when she urinates but it does not explain why the urinary tract infection was n ot able to be successfully eradicated. I am going to give the patient a dose of Rocephin here. The plan at this time will be to discharge the patient after the fluids we will start her on a different antibiotic and have her rechecked by her family doctor in several days. - Vital Signs Vital signs: Temp Pulse Resp BP Pulse Ox 98.0 F 66 15 172/70 H 99 09/20/20 15:01 09/20/20 14:38 09/20/20 18:01 09/20/20 18:01 09/20/20 18:01 - Laboratory Result Diagrams: 09/20/20 15:42 09/20/20 15:42 Laboratory results interpreted by me: 09/20/20 09/20/20 09/20/20 15:42 15:42 16:57 RDW 14.3 H Seg Neuts % (Manual) 39 L Lymphocytes % (Manual) 53 H Potassium 3.4 L BUN 33 H Creatinine 2.16 H Est GFR ( Amer) 26 L Est GFR (MDRD) Non-Af 22 L Glucose 132 H Calcium 11.5 H Urine Glucose (UA) 50 H Ur Leukocyte Esterase LARGE H Urine Ascorbic Acid 40 H - Diagnostic Test Radiology reviewed: Image reviewed, Reports reviewed - EKG Interpretation by Me EKG shows normal: Sinus rhythm Rate: Normal - 58 Rhythm: NSR Lee/QRS: LBBB Discharge - Discharge Clinical Impression: LBBB (left bundle branch block), Hypercalcemia UTI (urinary tract infection) Qualifiers: Urinary tract infection type: acute cystitis Hematuria presence: without hematuria Qualified Code(s): N30.00 - Acute cystitis without hematuria Condition: Stable Disposition: HOME, SELF-CARE Instructions: Urinary Tract Infection ([facility]) Additional Instructions: Please call your primary doctor first thing in the am to arrange a recheck in the next two to three days. Have your urine rechecked and your electrolytes Call Dr. Clarke as soon as possible to arrange follow up Start Levaquin tomorrow Prescriptions: Levofloxacin [Levaquin 500 mg Tablet] 500 mg PO DAILY #10 tablet Referrals: KATHY CADET MD [Primary Care Provider] - Follow up tomorrow
[2020-09-20 19:07] VITALS: BP 154/79
--- NOTE | 2020-09-20 21:20 | EKG REPORT ---
SEVERITY:- ABNORMAL ECG - SINUS BRADYCARDIA LEFT BUNDLE BRANCH BLOCK : Confirmed by: Davin Clarke MD 20-Sep-2020 21:19:49
== END 2020-09-20 19:14 | disposition home or self-care (01) ==
LOC: ER 14:07
DX: N30.00 Acute cystitis without hematuria (principal); I44.7 Left bundle-branch block, unspecified; E83.52 Hypercalcemia; I25.10 Atherosclerotic heart disease of native coronary artery without angina pectoris; I10 Essential (primary) hypertension; J44.9 Chronic obstructive pulmonary disease, unspecified
CPT/HCPCS: 93005; 99285; 96361; 96365; 36415; 87040; 84443; 85025; 80053; 81001; 84484; 71045; 93010; J7030; J0696